=== PATIENT | male | born 1940 | race Caucasian/White ===

== ENCOUNTER 2020-01-14 07:32 | Outpatient (REF) | payer MEDICARE, SELFPAY ==
[2020-01-14 11:36] LABS: Cholesterol 166 mg/dL; Glucose Fasting 129 mg/dL (60-99); HDL Cholesterol 49 mg/dL; LDL Cholesterol Calculated 92 mg/dl; Triglycerides 126 mg/dL
== END 2020-01-14 07:33 | disposition home or self-care (01) ==
LOC: HO.10HDL 07:32
PROVIDERS: Visit Provider Internal Medicine
DX: E78.5 Hyperlipidemia, unspecified (principal)
CPT/HCPCS: 80061; 82947

== ENCOUNTER 2020-06-10 07:21 | Outpatient (REF) | payer MEDICARE, SELFPAY ==
--- NOTE | ~2020-06-10 | XR_ITS ---
EXAMINATION: XR HIP, RIGHT CLINICAL INFORMATION: Pain COMPARISON: Previous x-ray August 2019 TECHNIQUE: Two views of the right hip and one view of the pelvis. FINDINGS: There is a right hip replacement in satisfactory position. No fracture, dislocation or x-ray evidence of loosening is seen. Bones of the pelvis are unremarkable. 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 Soft tissues are unremarkable. XR/XR hip RT w PEL1V IMPRESSION: Satisfactory appearance of right hip replacement.
== END 2020-06-10 07:22 | disposition home or self-care (01) ==
LOC: HO.HOSX 07:21
PROVIDERS: Visit Provider Orthopaedic Surgery
DX: Z47.1 Aftercare following joint replacement surgery (principal); Z96.641 Presence of right artificial hip joint
CPT/HCPCS: 73502; 99212

== ENCOUNTER 2020-07-31 06:43 | Outpatient (REF) | payer MEDICARE, SELFPAY ==
[2020-07-31 11:49] LABS: Estimated Average Glucose 171 mg/dL; Hemoglobin A1c % 7.6 %
[2020-07-31 11:51] LABS: Cholesterol 146 mg/dL; HDL Cholesterol 45 mg/dL; LDL Cholesterol Calculated 82 mg/dl; Triglycerides 99 mg/dL
== END 2020-07-31 06:44 | disposition home or self-care (01) ==
LOC: HO.HMGCLDS 06:43
PROVIDERS: PCP Internal Medicine; Visit Provider Internal Medicine
DX: E11.9 Type 2 diabetes mellitus without complications (principal)
CPT/HCPCS: 36415; 80061; 83036

== ENCOUNTER 2020-12-09 06:41 | Outpatient (REF) | payer MEDICARE, SELFPAY ==
[2020-12-09 11:48] LABS: Cholesterol 149 mg/dL; HDL Cholesterol 44 mg/dL; LDL Cholesterol Calculated 88 mg/dl; Triglycerides 89 mg/dL
[2020-12-09 12:08] LABS: Prostate Specific Antigen 0.38 ng/mL (<0.05-4.0)
== END 2020-12-09 06:42 | disposition home or self-care (01) ==
LOC: HO.HMGCLDS 06:41
PROVIDERS: PCP Internal Medicine; Visit Provider Nurse Practitioner Family
DX: N40.0 Benign prostatic hyperplasia without lower urinary tract symptoms (principal); E11.9 Type 2 diabetes mellitus without complications
CPT/HCPCS: 36415; 80061; 84153

== ENCOUNTER → 2020-12-11 10:42 | Outpatient (BNVA) | payer MEDICARE, SELFPAY | PROVIDERS: PCP Internal Medicine; Visit Provider Urology | DX: N40.0 Benign prostatic hyperplasia without lower urinary tract symptoms (principal) | CPT/HCPCS: 51798; 99212 ==

== ENCOUNTER 2021-04-21 06:14 | Outpatient (REF) | payer MEDICARE, SELFPAY ==
[2021-04-21 11:23] LABS: MANUAL DIFF FLAG NO
[2021-04-21 11:33] LABS: Basophils Absolute Auto 0.1 X10*3/uL (0.0-0.2); Basophils Percent Auto 1.4 % (0-2); Eosinophils Absolute Auto 0.4 X10*3/uL (0.0-0.4); Eosinophils Percent Auto 5.3 % (0-4); Hematocrit 48.4 % (42.0-52.0); Hemoglobin 15.8 g/dl (14.0-18.0); Imm Gran Abs Auto 0.03 X10*3/uL (0.00-0.03); Imm Gran Pct Auto 0.4 % (0.0-0.4); Lymphocytes Absolute Auto 1.9 X10*3/uL (1.2-4.9); Lymphocytes Percent Auto 24.2 % (20-40); Mean Corpuscular HGB Conc 32.6 g/dl (31.0-36.0); Mean Corpuscular Hemoglobin 30.2 pg (27.0-33.0); Mean Corpuscular Volume 92.5 fL (80.0-98.0); Mean Platelet Volume 10.9 fL (9.4-12.4); Monocytes Absolute Auto 0.6 X10*3/uL (0.1-1.2); Monocytes Percent Auto 7.7 % (2-11); Neutrophils Absolute Auto 4.8 x10*3/uL (2.0-8.3); Platelet Count 228 X10*3/uL (160-400); Red Blood Count 5.23 X10*6/uL (4.60-5.80); Red Cell Distribution Width 14.1 % (11.0-16.0); White Blood Count 7.9 X10*3/uL (4.8-10.8)
[2021-04-21 11:53] LABS: Estimated Average Glucose 154 mg/dL
[2021-04-21 12:06] LABS: Alanine Aminotransferase 21 U/L (0-40); Albumin Level 4.2 g/dL (3.5-5.0); Alkaline Phosphatase 59 U/L (39-117); Anion Gap 12 (12-20); Aspartate Amino Transferase 21 U/L (5-37); Bilirubin Total 0.8 mg/dL (0.0-1.0); Blood Urea Nitrogen 14 mg/dL (9-16); Calcium 9.2 mg/dL (8.4-10.2); Carbon Dioxide 27 mmol/L (22-29); Chloride 107 mmol/L (96-108); Cholesterol 145 mg/dL; Estimated Glomerular Filt Rate > 60; Glucose Fasting 132 mg/dL (60-99); HDL Cholesterol 44 mg/dL; LDL Cholesterol Calculated 82 mg/dl; Potassium 4.2 mmol/L (3.3-5.1); Sodium 142 mmol/L (135-145); Total Protein 6.6 g/dL (6.5-8.0); Triglycerides 96 mg/dL
== END 2021-04-21 06:15 | disposition home or self-care (01) ==
LOC: HO.HMGCLDS 06:14
PROVIDERS: Visit Provider Internal Medicine
DX: Z00.00 Encounter for general adult medical examination without abnormal findings (principal); E11.9 Type 2 diabetes mellitus without complications
CPT/HCPCS: 36415; 80053; 80061; 83036; 85025

== ENCOUNTER 2021-08-13 06:10 | Outpatient (REF) | payer MEDICARE, SELFPAY ==
[2021-08-13 11:49] LABS: Estimated Average Glucose 146 mg/dL; Hemoglobin A1c % 6.7 %
[2021-08-13 12:08] LABS: Cholesterol 169 mg/dL; Glucose Fasting 135 mg/dL (60-99); HDL Cholesterol 46 mg/dL; LDL Cholesterol Calculated 105 mg/dl; Triglycerides 91 mg/dL
== END 2021-08-13 06:11 | disposition home or self-care (01) ==
LOC: HO.HMGCLDS 06:10
PROVIDERS: Visit Provider Internal Medicine
DX: Z00.00 Encounter for general adult medical examination without abnormal findings (principal); E11.65 Type 2 diabetes mellitus with hyperglycemia
CPT/HCPCS: 36415; 80061; 82947; 83036

== ENCOUNTER 2021-11-10 06:01 | Outpatient (REF) | payer MEDICARE, SELFPAY ==
[2021-11-10 11:53] LABS: Estimated Average Glucose 143 mg/dL; Hemoglobin A1c % 6.6 %
[2021-11-10 12:01] LABS: Cholesterol 179 mg/dL; Glucose Fasting 127 mg/dL (60-99); HDL Cholesterol 56 mg/dL; LDL Cholesterol Calculated 107 mg/dl; Triglycerides 81 mg/dL
== END 2021-11-10 06:02 | disposition home or self-care (01) ==
LOC: HO.HMGCLDS 06:01
PROVIDERS: PCP Internal Medicine; Visit Provider Internal Medicine
DX: E11.65 Type 2 diabetes mellitus with hyperglycemia (principal)
CPT/HCPCS: 36415; 80061; 82947; 83036

== ENCOUNTER → 2021-12-11 08:55 | Outpatient (BNVA) | payer MEDICARE, SELFPAY | PROVIDERS: PCP Internal Medicine; Visit Provider Urology | DX: N40.0 Benign prostatic hyperplasia without lower urinary tract symptoms (principal) | CPT/HCPCS: 51798; 99212 ==

== ENCOUNTER 2022-02-01 13:22 | Outpatient (REF) | payer MEDICARE, SELFPAY | END 2022-02-01 13:23 | disposition home or self-care (01) | LOC: HO.SH 13:22 | PROVIDERS: Visit Provider Internal Medicine | DX: H90.3 Sensorineural hearing loss, bilateral (principal) | CPT/HCPCS: 92557; 92567 ==

== ENCOUNTER 2022-02-01 15:07 | Outpatient (REF) | payer SELFPAY ==
--- NOTE | 2022-02-04 07:43 | MHC.AU.MED ---
Medical Clearance for Hearing Instrumentation Date: 02/04/22 Patient Name: Christopher Wagner Date of : 1940 Primary Care Provider: Referring Provider: Raoul Escudero MD We have seen your patient on 02/04/22 and have determined that they are a candidate for amplification (See accompanying report). Specifically, they would benefit from: Hearing aid use in both ears There is a statute that addresses Medical Evaluation Requirements prior to fitting a patient with a hearing aid. According to [place] statute 265 CMR:6.03(1), (a) General. Except as provided in 265 CMR 6.03(1)(b), a hearing aide technician shall not sell a hearing aid unless the prospective user has presented to the hearing aide technician a written statement signed by a licensed physician that states that the patient's hearing loss has been medically evaluated and the patient may be considered a candidate for a hearing aid. The medical evaluation must have taken place within the preceding six months. Please note: Due to the [place] Statute referenced above, we cannot accept a signature other than that of a licensed physician. APPLICATION SOFTWARE ENGINEER and PA signatures cannot be accepted. I am in agreement with the above recommendation. There is no medical contraindication for hearing instrumentation. Physician Signature Date Physician Name (Printed)
--- NOTE | 2022-02-04 07:54 | MHC.AU.HAS ---
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 Advise binaural hearing aids. Discussed appropriate styles of hearing aids for loss and technology levels available. Hearing Aid Prescription: Based on the individual?s shared listening needs, communication environments, dexterity, desire for connectivity, and personal preferences, the following prescription for amplification has been made: Right ear: Textile Machine Mechanic: trip.me Model: [employer] AI 1999 RAFAELA-R Battery Size: Rechargeable Color: Dada Silver Control Systems Technician: #3 60 gain Type of Mold: Genesis Canal mold Left ear:Left ear prescription to be same as Right Hearing Aid above: Textile Machine Mechanic: trip.me Model: Nanoferencev AI 1999 RAFAELA-R Battery Size: Rechargeable Color: Dada Silver Control Systems Technician: #3 60 gain Type of Mold: Genesis Canal Mold Plan of Care: Patient wishes to purchase hearing aids as prescribed Action Taken/Action Needed: Earmold Impressions Taken Medical Clearance to be requested from PCP/ENT Hearing Instrument Fitting to be scheduled when materials arrive Primary Diagnosis: H90.3 Bilateral Sensorineural Hearing Loss Signature:Provider: Janelle Murray, [facility]
== END 2022-02-01 15:08 | disposition home or self-care (01) ==
LOC: HO.HAP 15:07
PROVIDERS: Visit Provider Internal Medicine
DX: Z46.1 Encounter for fitting and adjustment of hearing aid (principal); H90.3 Sensorineural hearing loss, bilateral
CPT/HCPCS: 92590

== ENCOUNTER 2022-02-16 06:30 | Outpatient (REF) | payer MEDICARE, SELFPAY ==
[2022-02-16 11:58] LABS: Estimated Average Glucose 154 mg/dL
[2022-02-16 12:27] LABS: Cholesterol 182 mg/dL; Glucose Fasting 124 mg/dL (60-99); HDL Cholesterol 51 mg/dL; LDL Cholesterol Calculated 110 mg/dl; Triglycerides 109 mg/dL
== END 2022-02-16 06:31 | disposition home or self-care (01) ==
LOC: HO.HMGCLDS 06:30
PROVIDERS: PCP Internal Medicine; Visit Provider Internal Medicine
DX: E78.5 Hyperlipidemia, unspecified (principal); E11.65 Type 2 diabetes mellitus with hyperglycemia
CPT/HCPCS: 36415; 80061; 82947; 83036

== ENCOUNTER 2022-02-26 12:31 | Outpatient (REF) | payer SELFPAY ==
--- NOTE | 2022-02-26 14:15 | MHC.AU.HFA ---
Hearing Instrument Fitting- Adult- Binaural Date of Visit: 02/26/22 Hearing Instruments Dispensed: Right Ear: Genesis BRADLEY RAFAELA R STRL [id number] Repair Warranty: 05/14/24 Loss and Damage Warranty: 05/14/24 Service Plan: 02/26/2025 Battery Size: Rechargeable Weekend Anchor/Mold: Absolute Power Rec SnapFit #3 60 gain, SN [id number], Warranty 03/13/2024 Type of Wax Guard: HearClear Left Ear: Genesis RUSSO R STRL [id number] Repair Warranty: 05/14/24 Loss and Damage Warranty: 05/14/24 Service Plan: 02/26/2025 Battery Size: Rechargeable Weekend Anchor/Mold: Absolute Power Rec SnapFit #3 60 gain, SN [id number], Warranty 03/13/2024 Type of Wax Guard: HearClear (Blue w/yellow sticks) Accessories/Assistive Technology: Genesis Standard Digester [id number] Tonny: 05/14/25 Summary of Fitting: Feedback feed manager run. Verifit performed and levels adjusted to better reach targets. Patient was pleased with the sound and did not feel any additional adjustments were necessary. Hearing aid care and maintenance were discussed and practiced. Hearing aids were paired to his phone and the obdulia. Recommendations: A hearing instrument follow-up was scheduled. Paid $5492.00 Diagnosis Code(s): H90.3 Bilateral Sensorineural Hearing Loss Signature: Provider: Janelle Collado, CCC-A
== END 2022-02-26 12:32 | disposition home or self-care (01) ==
LOC: HO.HAP 12:31
PROVIDERS: Visit Provider Internal Medicine
DX: Z46.1 Encounter for fitting and adjustment of hearing aid (principal); H90.3 Sensorineural hearing loss, bilateral
CPT/HCPCS: V5261; V5264; V5299

== ENCOUNTER 2022-03-02 12:34 | Outpatient (REF) | payer SELFPAY | END 2022-03-02 12:35 | disposition home or self-care (01) | LOC: HO.HAP 12:34 | PROVIDERS: Visit Provider Internal Medicine | DX: Z13.89 Encounter for screening for other disorder (principal) ==

== ENCOUNTER 2022-03-09 08:29 | Outpatient (REF) | payer SELFPAY | END 2022-03-09 08:30 | disposition home or self-care (01) | LOC: HO.HAP 08:29 | PROVIDERS: Visit Provider Internal Medicine | DX: Z13.89 Encounter for screening for other disorder (principal) ==

== ENCOUNTER 2022-03-19 12:16 | Outpatient (REF) | payer SELFPAY | END 2022-03-19 12:17 | disposition home or self-care (01) | LOC: HO.HAP 12:16 | PROVIDERS: Visit Provider Internal Medicine | DX: Z13.89 Encounter for screening for other disorder (principal) ==

== ENCOUNTER 2022-05-05 13:56 | Outpatient (REF) | payer SELFPAY | END 2022-05-05 13:57 | disposition home or self-care (01) | LOC: HO.HAP 13:56 | PROVIDERS: Visit Provider Internal Medicine | DX: Z46.1 Encounter for fitting and adjustment of hearing aid (principal); H90.3 Sensorineural hearing loss, bilateral | CPT/HCPCS: V5267 ==

== ENCOUNTER 2022-05-18 06:29 | Outpatient (REF) | payer MEDICARE, SELFPAY ==
[2022-05-18 11:48] LABS: Cholesterol 186 mg/dL; Glucose Fasting 129 mg/dL (60-99); HDL Cholesterol 48 mg/dL; LDL Cholesterol Calculated 118 mg/dl; Triglycerides 101 mg/dL
[2022-05-18 12:00] LABS: Estimated Average Glucose 160 mg/dL; Hemoglobin A1c % 7.2 %
== END 2022-05-18 06:30 | disposition home or self-care (01) ==
LOC: HO.HMGCLDS 06:29
PROVIDERS: PCP Internal Medicine; Visit Provider Internal Medicine
DX: E11.65 Type 2 diabetes mellitus with hyperglycemia (principal); E78.5 Hyperlipidemia, unspecified
CPT/HCPCS: 36415; 80061; 82947; 83036

== ENCOUNTER 2022-09-06 06:09 | Outpatient (REF) | payer MEDICARE, SELFPAY ==
[2022-09-06 11:46] LABS: Estimated Average Glucose 160 mg/dL; Hemoglobin A1c % 7.2 %
[2022-09-06 11:53] LABS: Cholesterol 164 mg/dL; Glucose Fasting 130 mg/dL (60-99); HDL Cholesterol 48 mg/dL; LDL Cholesterol Calculated 96 mg/dl; Triglycerides 104 mg/dL
[2022-09-06 12:15] LABS: Thyroid Stimulating Hormone 5.51 uIU/mL (0.32-4.0)
== END 2022-09-06 06:10 | disposition home or self-care (01) ==
LOC: HO.HMGCLDS 06:09
PROVIDERS: PCP Internal Medicine; Visit Provider Internal Medicine
DX: E03.9 Hypothyroidism, unspecified (principal); R73.9 Hyperglycemia, unspecified; E78.5 Hyperlipidemia, unspecified
CPT/HCPCS: 36415; 80061; 82947; 83036; 84443

== ENCOUNTER 2022-12-07 06:10 | Outpatient (REF) | payer MEDICARE, SELFPAY ==
[2022-12-07 11:49] LABS: Estimated Average Glucose 151 mg/dL; Hemoglobin A1c % 6.9 % (<6.0)
[2022-12-07 12:15] LABS: Cholesterol 144 mg/dL (<200); Glucose Fasting 128 mg/dL (60-99); HDL Cholesterol 45 mg/dL (>40); LDL Cholesterol Calculated 80 mg/dL (<100); Triglycerides 97 mg/dL (<150)
[2022-12-07 12:16] LABS: Thyroid Stimulating Hormone 3.95 uIU/mL (0.32-4.0)
== END 2022-12-07 06:11 | disposition home or self-care (01) ==
LOC: HO.HMGCLDS 06:10
PROVIDERS: PCP Internal Medicine; Visit Provider Internal Medicine
DX: E03.9 Hypothyroidism, unspecified (principal); E78.5 Hyperlipidemia, unspecified; R73.9 Hyperglycemia, unspecified
CPT/HCPCS: 36415; 80061; 82947; 83036; 84443

== ENCOUNTER 2022-12-15 14:22 | Outpatient (AMB) | payer MEDICARE, SELFPAY ==
[2022-12-15 14:25] VITALS: BP 140/70; PULSE 85; O2SAT 96; BMI 30.4
--- NOTE | 2022-12-15 14:25 | MHC.PC.OV ---
Vital Signs 12/15/22 14:25 Height 5 ft 5 in Weight 183 lb BMI 30.4 BP 140/70 H Blood Pressure Location Lt brachial Position Sitting Pulse 85 Pulse Source Pulse Oximeter Pulse Oximetry (%) 96 Oxygen Delivery Method Room Air Intake Visit Reasons: 3mth f/u Merchant Mariner: Not Required per policy Accompanied by: Self / Same As Patient Allergies CHARLENE Inhibitors [CHARLENE INHIBITORS] Allergy (Unknown, Verified 12/15/22 14:25) COUGH SEASONAL ALLERGIES Allergy (Unknown, Uncoded 12/15/22 14:25) STUFFINESS, SNEEZING Medication List - Last Reconciled 12/16/22 by Raoul Escudero MD amlodipine 5 mg PO DAILY atorvastatin 20 mg PO DAILY finasteride 5 mg PO DAILY 90 days Tobacco use date assessed: 09/13/22 Fall risk assessment: 1 Fall in past year Last assessed Fall Risk: 12/15/22 Dental Screening Dental Screen Date: 12/15/22 Did you have a dental visit in the last 12 months?: Yes Did you have a dental problem in the last 6 months where you did not have access to dental care?: No Was dental information given to patient?: Patient has dentist HPI 3mth f/u HPI Details htn hyperlipidemia and bph; on meds and compliant doing well PFSH Medical History Hyperlipidemia Hypertension Surgical History History of colonoscopy History of total replacement of right hip H/O pilonidal cyst History of right hip replacement Family History Father Heart disease Mother Head injury Brother No problems noted. Family/Other Diabetes Social History Housing: House Alcohol intake: never Patient Tobacco Use Status: Never used Tobacco e-Cigarette/Vaping Use: Never Used Second Hand Smoke Exposure: No service: No Current occupational status: retired Current occupational exposures/hazards: No Cognitive needs: No Hearing needs: Yes Vision needs: Yes (glasses) Questionnaire PHQ-9 Over the last 2 weeks, how often have you been bothered by any of the following problems? 1. Little interest or pleasure in doing things: not at all 2. Feeling down, depressed, or hopeless: not at all 3. Trouble falling or staying asleep, or sleeping too much: not at all 4. Feeling tired or having little energy: not at all 5. Poor appetite or overeating: not at all 6. Feeling bad about yourself - or that you are a failure or have let yourself or your family down: not at all 7. Trouble concentrating on things, such as reading the newspaper or watching television: not at all 8. Moving or speaking so slowly that other people could have noticed. Or the opposite - being so fidgety or restless that you have been moving around a lot more than usual: not at all 9. Thoughts that you would be better off or of hurting yourself in some way: not at all Total score: 0 Depression Screening Interpretation: Negative 34738 - PHQ-9 Billing: Yes Source: Developed by Drs. Jeff Maria, Nataliya Bal, Avtar Lozada and colleagues, with an educational capo from [employer]. Thrive Questionnaire Date Thrive assessed: 08/26/22 AUDIT C Alcohol Use Questionnaire (AUDIT-C) 1. How often do you have a drink containing alcohol?: Never 3. How often do you have six or more drinks on one occasion?: Never Total Score: 0 Score Reviewed/Action Taken: Yes EMY-7 AMB Questionnaire EMY-7 Date EMY - 7 assessed: 05/26/22 Source: Developed by Drs. Jeff Maria, Nataliya Bal, Avtar Lozada and colleagues, with an educational capo from [employer]. Review of Systems Const Denies chills, Denies headache(s) and Denies weight loss ENT Denies headache(s) Card Denies chest pain, Denies syncope, Denies irregular heart rhythm and Denies dyspnea Resp Denies chest congestion, Denies cough and Denies dyspnea GI Denies abdominal pain, Denies change in stool character, Denies nausea and Denies vomiting Musc Denies deformity and Denies joint swelling Neuro Denies syncope and Denies headache(s) Physical exam (Primary Care) Vital Signs: Last Vital Signs Pulse 85 12/15/22 14:25 BP 140/70 H 12/15/22 14:25 Pulse Ox 96 12/15/22 14:25 Oxygen Delivery Method Room Air 12/15/22 14:25 BMI result Body Mass Index 30.4 Tobacco/Smoking Status: Tobacco use Status Tobacco use date assessed 09/13/22 12/15/22 14:29 Patient Tobacco Use Status Never used Tobacco 12/15/22 14:29 e-Cigarette/Vaping Use Never Used 12/15/22 14:29 PHQ-9: PHQ-9 Score PHQ-9: Total score 0 12/15/22 14:29 Depression Screening Interpretation: Negative Thrive Assessment: Date of Thrive Assessment Date Thrive assessed 08/26/22 12/15/22 14:29 Const General: cooperative, comfortable, no acute distress and alert Neck Neck: Yes no lymphadenopathy Thyroid: Thyroid normal Resp Effort & Inspection: normal respiratory effort Auscultation: clear to auscultation bilaterally Percussion: percussion normal Cardio Jugular venous distension: no JVD Palpation: normal PMI Rate: regular rate Rhythm: regular rhythm Heart sounds: S1 normal heart sound present and S2 normal heart sound present GI Inspection: Yes normal to inspection Palpation (GI): No hepatosplenomegaly present Skin General skin exam: no rashes or lesions noted Extrem General: Yes no clubbing, cyanosis or edema Assessment and Plan Assessment & Plan (1) Benign prostate hyperplasia: Code(s): N40.0 - Benign prostatic hyperplasia without lower urinary tract symptoms Qualifiers: Lower urinary tract symptom presence: symptoms absent Qualified Code(s): N40.0 - Benign prostatic hyperplasia without lower urinary tract symptoms Plan: stable; same rx (2) Hyperlipidemia: Code(s): E78.5 - Hyperlipidemia, unspecified Qualifiers: Hyperlipidemia type: unspecified Qualified Code(s): E78.5 - Hyperlipidemia, unspecified Plan: stable; same rx (3) Hypertension: Code(s): I10 - Essential (primary) hypertension Qualifiers: Hypertension type: unspecified Qualified Code(s): I10 - Essential (primary) hypertension Plan: stable Orders: Orders Lipid Panel Today E78.5 - Hyperlipidemia, unspecified Coding Level of Care Code Est Pt Level 4 (45549) Diagnoses Benign prostatic hyperplasia without lower urinary tract symptoms N40.0 Lower urinary tract symptom presence: symptoms absent Hyperlipidemia, unspecified hyperlipidemia type E78.5 Hyperlipidemia type: unspecified Hypertension, unspecified type I10 Hypertension type: unspecified
== END 2022-12-15 14:42 | disposition home or self-care (01) ==
PROVIDERS: PCP Internal Medicine; Visit Provider Internal Medicine
DX: N40.0 Benign prostatic hyperplasia without lower urinary tract symptoms (principal); E78.5 Hyperlipidemia, unspecified; I10 Essential (primary) hypertension
CPT/HCPCS: 99214

== ENCOUNTER 2023-01-07 13:29 | Outpatient (REF) | payer SELFPAY ==
--- NOTE | 2023-01-07 14:49 | MHC.AU.HA3 ---
Hearing Instrument Follow-Up- Binaural Date of Visit: 01/07/23 Right Ear: Srinivasan, Model, Color, Serial Number: Genesis RUSSO R SN: [id number] Color: Dada Silver Blow Mold Machine Operator Repair Warranty: 05/14/2024 Blow Mold Machine Operator Loss and Damage Warranty: 05/14/2024 [facility] Service Plan: 02/26/2025 Battery Size: Rechargeable Java Sybase Developer/Slim Tube: Absolute Power Rec SnapFit #3 60 gain Earmold/Dome/CShell/SlimTip:Genesis Canal mold SN: [id number] Tonny: 03/13/2024 Type of Wax Guard: HearClear Dispensed By: [facility] Date of Fittin02/26/2022 Left Ear: Srinivasan, Model, Color, Serial Number: Genesis RUSSO R SN: [id number] Color: Dada Silver Blow Mold Machine Operator Repair Warranty: 05/14/2024 Blow Mold Machine Operator Loss and Damage Warranty: 05/14/2024 [facility] Service Plan: 02/26/2025 Battery Size: Rechargeable Java Sybase Developer/Slim Tube: Absolute Power Java Sybase Developer SnapFit #3 60 gain Earmold/Dome/CShell/SlimTip: Genesis Canal Mold [id number] Bhjkdhex28/17/24 Type of Wax Guard: HearClear Dispensed By: [facility] Date of Fittin02/26/2022 Follow-Up Summary: Christopher reported that a couple days ago, his left hearing aid would not connect to the [place]. He is unsure if the hearing aid was working otherwise; although, he did notice some difficulty hearing in quiet spaces during that time. However, this morning, the left hearing aid connected to the dennis with no issues. Cleaned both hearing aids and ear molds. Lots of wax build up in vents. Replaced wax guards. Otoscopy clear, bilaterally. Ran diagnostic test via Inspire software with all components passing in both hearing aids. Appears to have been a bluetooth connection issue; however, discussed option to send hearing aid to [facility] for repair just in case. Christopher opted to try again as is. If the problem persists, he will drop off the left hearing aid to be sent out for in-warranty repair. Recommendations: Hearing instrument follow-up or maintenance as needed. Please contact our clinic with any questions or concerns. Patient will call if problems persist. Diagnosis Code(s): Primary Diagnosis: H90.3 Bilateral Sensorineural Hearing Loss Signature: Provider: Janelle Becker, [facility]
== END 2023-01-07 13:30 | disposition home or self-care (01) ==
LOC: HO.HAP 13:29
PROVIDERS: Visit Provider Internal Medicine
DX: Z46.1 Encounter for fitting and adjustment of hearing aid (principal); H90.3 Sensorineural hearing loss, bilateral
CPT/HCPCS: V5267

== ENCOUNTER 2023-02-01 13:04 | Outpatient (REF) | payer SELFPAY | END 2023-02-01 13:05 | disposition home or self-care (01) | LOC: HO.HAP 13:04 | PROVIDERS: Visit Provider Internal Medicine | DX: Z13.89 Encounter for screening for other disorder (principal) ==

== ENCOUNTER 2023-04-29 06:33 | Outpatient (REF) | payer MEDICARE, SELFPAY ==
[2023-04-29 12:25] LABS: Cholesterol 155 mg/dL (<200); HDL Cholesterol 47 mg/dL (>40); LDL Cholesterol Calculated 86 mg/dL (<100); Triglycerides 112 mg/dL (<150)
== END 2023-04-29 06:34 | disposition home or self-care (01) ==
LOC: HO.HMGCLDS 06:33
PROVIDERS: PCP Internal Medicine; Visit Provider Internal Medicine
DX: E78.5 Hyperlipidemia, unspecified (principal)
CPT/HCPCS: 36415; 80061

== ENCOUNTER 2023-05-02 09:10 | Outpatient (AMB) | payer MEDICARE, SELFPAY ==
--- NOTE | 2023-05-02 09:44 | A.OFFVIS_ITS ---
Intake Intake Visit Reasons: BPH- yearly follow up Intake Note: Patient presents today for a follow-up on BPH yearly check up: Meds- Finasteride Allergies to Antibiotic- No Known Allergies Blood Thinner- None Post Void Residual: 36 mL Nuisance Animal Damage Control Agent Required: No Accompanied by: Self / Same As Patient Allergies CHARLENE Inhibitors [CHARLENE INHIBITORS] Allergy (Unknown, Verified 05/02/23 09:45) COUGH SEASONAL ALLERGIES Allergy (Unknown, Uncoded 05/02/23 09:45) STUFFINESS, SNEEZING Medication List - Last Reconciled 05/02/23 by Gee Alvarez MD amlodipine 5 mg PO DAILY atorvastatin 20 mg PO DAILY finasteride 5 mg PO DAILY 90 days HPI HPI Comments History of Present Illness Details Christopher is an 82-year-old gentleman who is a patient of Dr. Oslon followed for BPH currently on Proscar 5 mg daily. He was last evaluated 12/11/2021. The patient states that he takes the finasteride Tuesday and Tuesday. He denies any irritative urinary symptoms and states he has a good flow and is drinking water to keep hydrated. 05/02/2023 bladder scan PVR --26mL I have reviewed the chart was PSA 12/09/2020--0.38 Plan: 05/22/2023--continue finasteride, follow-up with Dr. Olson in 1 year [facility] Medical History Hyperlipidemia Hypertension Surgical History History of colonoscopy History of total replacement of right hip H/O pilonidal cyst History of right hip replacement Family History Father Heart disease Mother Head injury Brother No problems noted. Family/Other Diabetes Social History Housing: House Alcohol intake: never Patient Tobacco Use Status: Never used Tobacco e-Cigarette/Vaping Use: Never Used Second Hand Smoke Exposure: No service: No Current occupational status: retired Current occupational exposures/hazards: No Cognitive needs: No Hearing needs: Yes Vision needs: Yes (glasses) Review of Systems Const All systems reviewed & are unremarkable except as noted in HPI and below Reports no additional complaints Eyes Reports no additional complaints ENT Reports no additional complaints Card Denies dyspnea Resp Denies cough and Denies dyspnea GI Reports no additional complaints Musc Reports no additional complaints Skin/Breast Denies rash and Denies unusual bruising Neuro Reports no additional complaints Psych Reports no additional complaints Endo Reports no additional complaints Charanjit/Lymph Reports no additional complaints Aller/Immun Reports no additional complaints Office Procedures Post Void Residual Post Residual Void Post Void Residual (PVR): 36 [id number] Void Residual by ultrasound Assessment & Plan Assessment & Plan (1) Benign prostate hyperplasia: Code(s): N40.0 - Benign prostatic hyperplasia without lower urinary tract symptoms Qualifiers: Lower urinary tract symptom presence: symptoms absent Qualified Code(s): N40.0 - Benign prostatic hyperplasia without lower urinary tract symptoms Plan 05/22/2023--continue finasteride, follow-up with Dr. Olson in 1 year Orders: Orders AMB Urinalysis Automated Today Z13.9 - Encounter for screening, unspecified AMB Post Void Residual by ultrasound Today N39.8 - Other specified disorders of urinary system Medications: Refilled finasteride 5 mg PO DAILY 90 days 90 tabs 0RF Patient Instructions: The patient had an opportunity to ask questions regarding treatment plan. All questions were answered. Laboratory studies and physical exam results were discussed and reviewed in detail. No major barriers to understanding were identified. The patient expressed understanding and agreement with the above treatment plan. The patient is aware they should contact our office by phone for worsening of their current condition or the appearance of new symptoms. Compliance is encouraged with any medications and followup testing that is ordered. It is a privilege to be allowed the opportunity to participate in the urologic care of your patient. If you have any questions or concerns regarding treatment for the above conditions please do not hesitate to contact me. The office telephone contact is [phone]. This note is constructed in part using voice recognition software. While every effort has been made to ensure accuracy vp mobile products errors may have been included. Yours sincerely, Gee Alvarez MD Coding Level of Care Code Est Pt Level 3 (15328) Diagnoses Benign prostatic hyperplasia without lower urinary tract symptoms N40.0 Lower urinary tract symptom presence: symptoms absent CPT Codes Post Residual Void - PVR CPT Code: 98688-Vokc Void Residual by ultrasound ([id number])
== END 2023-05-02 10:19 | disposition home or self-care (01) ==
PROVIDERS: Visit Provider Urology
DX: N40.0 Benign prostatic hyperplasia without lower urinary tract symptoms (principal)
CPT/HCPCS: 99213

== ENCOUNTER → 2023-05-02 09:10 | Outpatient (BNVA) | payer MEDICARE, SELFPAY | PROVIDERS: Visit Provider Urology | DX: N40.0 Benign prostatic hyperplasia without lower urinary tract symptoms (principal); N39.8 Other specified disorders of urinary system | CPT/HCPCS: 51798; 99212 ==

== ENCOUNTER 2023-05-04 10:10 | Outpatient (AMB) | payer MEDICARE, SELFPAY ==
[2023-05-04 10:16] VITALS: BP 130/60; PULSE 60; O2SAT 95; BMI 30.8
--- NOTE | 2023-05-04 10:16 | A.OFFPC_ITS ---
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: Not Required per policy Accompanied by: Self / Same As Patient Allergies CHARLENE Inhibitors [CHARLENE INHIBITORS] Allergy (Unknown, Verified 05/04/23 10:16) COUGH SEASONAL ALLERGIES Allergy (Unknown, Uncoded 05/04/23 10:16) STUFFINESS, SNEEZING Medication List - Last Reconciled 05/04/23 by Raoul Escudero MD amlodipine 5 mg PO DAILY atorvastatin 20 mg PO DAILY finasteride 5 mg PO DAILY 90 days Tobacco use date assessed: 05/04/23 Fall risk assessment: 1 Fall in past year Last assessed Fall Risk: 05/04/23 Dental Screening Dental Screen Date: 05/04/23 Did you have a dental visit in the last 12 months?: Yes Did you have a dental problem in the last 6 months where you did not have access to dental care?: No Was dental information given to patient?: Patient has dentist HPI 3 Months F/U HPI Details HTN hyperlipidemia and BPH on rx; doing well; compliant [facility] Medical History Hyperlipidemia Hypertension Surgical History History of colonoscopy History of total replacement of right hip H/O pilonidal cyst History of right hip replacement Family History Father Heart disease Mother Head injury Brother No problems noted. Family/Other Diabetes Social History Housing: House Alcohol intake: never Patient Tobacco Use Status: Never used Tobacco e-Cigarette/Vaping Use: Never Used Second Hand Smoke Exposure: No service: No Current occupational status: retired Current occupational exposures/hazards: No Cognitive needs: No Hearing needs: Yes Vision needs: Yes (glasses) Questionnaire PHQ-9 Over the last 2 weeks, how often have you been bothered by any of the following problems? 1. Little interest or pleasure in doing things: not at all 2. Feeling down, depressed, or hopeless: not at all 3. Trouble falling or staying asleep, or sleeping too much: not at all 4. Feeling tired or having little energy: not at all 5. Poor appetite or overeating: not at all 6. Feeling bad about yourself - or that you are a failure or have let yourself or your family down: not at all 7. Trouble concentrating on things, such as reading the newspaper or watching television: not at all 8. Moving or speaking so slowly that other people could have noticed. Or the opposite - being so fidgety or restless that you have been moving around a lot more than usual: not at all 9. Thoughts that you would be better off or of hurting yourself in some way: not at all Total score: 0 Depression Screening Interpretation: Negative Depression Screening Done: Yes 54434 - PHQ-9 Billing: Yes Source: Developed by Drs. Jeff Maria, Nataliya Bal, Avtar Lozada and colleagues, with an educational capo from [employer]. Thrive Questionnaire Date Thrive assessed: 05/04/23 I am a: Patient What is your living situation today?: I have a steady place to live Within the past 12 months, did the food you bought not last and you didn't have the money to get more?: Never true Within the past 12 months, did you worry whether your food would run out before you got money to buy more?: Never true Do you have trouble paying for medicines?: No Do you have trouble getting transportation to medical appointments?: No Do you have trouble paying your heating and electricity bill?: No Do you have trouble taking care of your child, family member or friend?: No Do you have trouble with day-to-day activities such as bathing, preparing meals, shopping, managing finances, etc.?: No Are you currently unemployed and looking for a job?: No Are you interested in more education?: No Please select the resources that you would like help with: None THRIVE Score: 0 AUDIT C Alcohol Use Questionnaire (AUDIT-C) 1. How often do you have a drink containing alcohol?: Never 3. How often do you have six or more drinks on one occasion?: Never Total Score: 0 Score Reviewed/Action Taken: Yes EMY-7 AMB Questionnaire EMY-7 Date EMY - 7 assessed: 05/04/23 Feeling nervous, anxious, or on edge: 0 = Not at all Not being able to stop or control worryin = Not at all Worrying too much about different things: 0 = Not at all Trouble relaxin = Not at all Being so restless that it is hard to sit still: 0 = Not at all Becoming easily annoyed or irritable: 0 = Not at all Feeling afraid as if something awful might happen: 0 = Not at all Total EMY-7 score (0-4 normal; 5-9 mild; 10-14 moderate; 15-21 severe): 0 Source: Developed by Drs. Jeff Maria, Nataliya Bal, Avtar Lozada and colleagues, with an educational capo from [employer]. Review of Systems Const Denies chills, Denies headache(s) and Denies weight loss ENT Denies headache(s) Card Denies chest pain, Denies syncope, Denies irregular heart rhythm and Denies dyspnea Resp Denies chest congestion, Denies cough and Denies dyspnea GI Denies abdominal pain, Denies change in stool character, Denies nausea and Denies vomiting Musc Denies deformity and Denies joint swelling Neuro Denies syncope and Denies headache(s) Physical exam (Primary Care) Vital Signs: Last Vital Signs Pulse 60 05/04/23 10:16 BP 130/60 05/04/23 10:16 Pulse Ox 95 05/04/23 10:16 Oxygen Delivery Method Room Air 05/04/23 10:16 BMI result Body Mass Index 30.8 Tobacco/Smoking Status: Tobacco use Status Tobacco use date assessed 05/04/23 05/04/23 10:17 Patient Tobacco Use Status Never used Tobacco 05/04/23 10:17 e-Cigarette/Vaping Use Never Used 05/04/23 10:17 PHQ-9: PHQ-9 Score PHQ-9: Total score 0 05/04/23 10:17 Depression Screening Interpretation: Negative Thrive Assessment: Date of Thrive Assessment Date Thrive assessed 05/04/23 05/04/23 10:17 Const General: cooperative, comfortable, no acute distress and alert Neck Neck: Yes no lymphadenopathy Thyroid: Thyroid normal Resp Effort & Inspection: normal respiratory effort Auscultation: clear to auscultation bilaterally Percussion: percussion normal Cardio Jugular venous distension: no JVD Palpation: normal PMI Rate: regular rate Rhythm: regular rhythm Heart sounds: S1 normal heart sound present and S2 normal heart sound present GI Inspection: Yes normal to inspection Palpation (GI): No hepatosplenomegaly present Skin General skin exam: no rashes or lesions noted Extrem General: Yes no clubbing, cyanosis or edema Assessment and Plan Assessment & Plan (1) Benign prostate hyperplasia: Code(s): N40.0 - Benign prostatic hyperplasia without lower urinary tract symptoms Qualifiers: Lower urinary tract symptom presence: symptoms absent Qualified Code(s): N40.0 - Benign prostatic hyperplasia without lower urinary tract symptoms Plan: stable; same rx (2) Hyperlipidemia: Code(s): E78.5 - Hyperlipidemia, unspecified Qualifiers: Hyperlipidemia type: unspecified Qualified Code(s): E78.5 - Hyperlipidemia, unspecified Plan: stable; same rx (3) Hypertension: Code(s): I10 - Essential (primary) hypertension Qualifiers: Hypertension type: unspecified Qualified Code(s): I10 - Essential (primary) hypertension Plan: stable; same rx Orders: Orders Comprehensive Boyd. Panel Fast Today N28.9 - Disorder of kidney and ureter, unspecified Hemoglobin A1c Today R73.9 - Hyperglycemia, unspecified Lipid Panel Today E78.5 - Hyperlipidemia, unspecified Thyroid Stimulating Hormone Today E03.9 - Hypothyroidism, unspecified Medications: Refilled atorvastatin 20 mg PO DAILY 90 tabs 0RF amlodipine 5 mg PO DAILY 90 tabs 0RF Coding Level of Care Code Tele Est Pt Level 4 (32053) Diagnoses Benign prostatic hyperplasia without lower urinary tract symptoms N40.0 Lower urinary tract symptom presence: symptoms absent Hyperlipidemia, unspecified hyperlipidemia type E78.5 Hyperlipidemia type: unspecified Hypertension, unspecified type I10 Hypertension type: unspecified
== END 2023-05-04 10:43 | disposition home or self-care (01) ==
PROVIDERS: PCP Internal Medicine; Visit Provider Internal Medicine
DX: N40.0 Benign prostatic hyperplasia without lower urinary tract symptoms (principal); E78.5 Hyperlipidemia, unspecified; I10 Essential (primary) hypertension
CPT/HCPCS: 99214

== ENCOUNTER 2023-08-03 06:12 | Outpatient (REF) | payer MEDICARE, SELFPAY ==
[2023-08-03 10:57] LABS: Estimated Average Glucose 171 mg/dL; Hemoglobin A1c % 7.6 % (<6.0)
[2023-08-03 11:03] LABS: Alanine Aminotransferase 41 U/L (0-40); Albumin Level 4.3 g/dL (3.5-5.0); Alkaline Phosphatase 49 U/L (39-117); Anion Gap 14 (12-20); Aspartate Amino Transferase 29 U/L (5-37); Bilirubin Total 0.7 mg/dL (0.0-1.0); Blood Urea Nitrogen 17 mg/dL (9-16); Calcium 9.4 mg/dL (8.4-10.2); Carbon Dioxide 25 mmol/L (22-29); Chloride 107 mmol/L (96-108); Cholesterol 162 mg/dL (<200); Estimated Glomerular Filt Rate > 60; Glucose Fasting 150 mg/dL (60-99); HDL Cholesterol 46 mg/dL (>40); LDL Cholesterol Calculated 98 mg/dL (<100); Potassium 4.1 mmol/L (3.3-5.1); Sodium 142 mmol/L (135-145); Triglycerides 93 mg/dL (<150)
[2023-08-03 11:21] LABS: Thyroid Stimulating Hormone 3.38 uIU/mL (0.32-4.0)
== END 2023-08-03 06:13 | disposition home or self-care (01) ==
LOC: HO.HMGCLDS 06:12
PROVIDERS: PCP Internal Medicine; Visit Provider Internal Medicine
DX: E03.9 Hypothyroidism, unspecified (principal); E78.5 Hyperlipidemia, unspecified; N28.9 Disorder of kidney and ureter, unspecified; R73.9 Hyperglycemia, unspecified
CPT/HCPCS: 36415; 80053; 80061; 83036; 84443

== ENCOUNTER 2023-08-19 12:57 | Outpatient (AMB) | payer MEDICARE, SELFPAY ==
[2023-08-19 13:03] VITALS: BP 146/78; PULSE 68; O2SAT 98; BMI 30.6
--- NOTE | 2023-08-19 13:03 | A.OFFPC_ITS ---
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 Accompanied by: Self / Same As Patient Allergies CHARLENE Inhibitors [CHARLENE INHIBITORS] Allergy (Unknown, Verified 08/19/23 13:03) COUGH SEASONAL ALLERGIES Allergy (Unknown, Uncoded 08/19/23 13:03) STUFFINESS, SNEEZING Tobacco use date assessed: 05/04/23 Fall risk assessment: No Falls in past year Last assessed Fall Risk: 08/19/23 Dental Screening Dental Screen Date: 05/04/23 HPI 3 Months F/U HPI Details HTN on Rx; doing well; compliant [facility] Medical History Hyperlipidemia Hypertension Surgical History History of colonoscopy History of total replacement of right hip H/O pilonidal cyst History of right hip replacement Family History Father Heart disease Mother Head injury Brother No problems noted. Family/Other Diabetes Social History Housing: House Alcohol intake: never Patient Tobacco Use Status: Never used Tobacco e-Cigarette/Vaping Use: Never Used Second Hand Smoke Exposure: No service: No Current occupational status: retired Current occupational exposures/hazards: No Cognitive needs: No Hearing needs: Yes Vision needs: Yes (glasses) Questionnaire Thrive Questionnaire Date Thrive assessed: 05/04/23 EMY-7 AMB Questionnaire EMY-7 Date EMY - 7 assessed: 05/04/23 Source: Developed by Drs. Jeff Maria, Nataliya Bal, Avtar Lozada and colleagues, with an educational capo from [employer]. Review of Systems Const Denies chills, Denies headache(s) and Denies weight loss ENT Denies headache(s) Card Denies chest pain, Denies syncope, Denies irregular heart rhythm and Denies dyspnea Resp Denies chest congestion, Denies cough and Denies dyspnea GI Denies abdominal pain, Denies change in stool character, Denies nausea and Denies vomiting Musc Denies deformity and Denies joint swelling Neuro Denies syncope and Denies headache(s) Physical exam (Primary Care) Vital Signs: Last Vital Signs Pulse 68 08/19/23 13:03 BP 146/78 H 08/19/23 13:03 Pulse Ox 98 08/19/23 13:03 Oxygen Delivery Method Room Air 08/19/23 13:03 BMI result Body Mass Index 30.6 Tobacco/Smoking Status: Tobacco use Status Tobacco use date assessed 05/04/23 08/19/23 13:03 Patient Tobacco Use Status Never used Tobacco 08/19/23 13:03 e-Cigarette/Vaping Use Never Used 08/19/23 13:03 Thrive Assessment: Date of Thrive Assessment Date Thrive assessed 05/04/23 08/19/23 13:03 Const General: cooperative, comfortable, no acute distress and alert Neck Neck: Yes no lymphadenopathy Thyroid: Thyroid normal Resp Effort & Inspection: normal respiratory effort Auscultation: clear to auscultation bilaterally Percussion: percussion normal Cardio Jugular venous distension: no JVD Palpation: normal PMI Rate: regular rate Rhythm: regular rhythm Heart sounds: S1 normal heart sound present and S2 normal heart sound present GI Inspection: Yes normal to inspection Palpation (GI): No hepatosplenomegaly present Skin General skin exam: no rashes or lesions noted Extrem General: Yes no clubbing, cyanosis or edema Assessment and Plan Assessment & Plan (1) Hypertension: Code(s): I10 - Essential (primary) hypertension Qualifiers: Hypertension type: unspecified Qualified Code(s): I10 - Essential (primary) hypertension Plan: stable; same rx Orders: Orders Lipid Panel Today Z13.220 - Encounter for screening for lipoid disorders Glucose Fasting Today R73.9 - Hyperglycemia, unspecified Hemoglobin A1c Today R73.9 - Hyperglycemia, unspecified Medications: New loratadine (Allergy Relief (loratadine)) 10 mg PO DAILY PRN 30 tabs 3RF allergy symptoms Coding Level of Care Code Est Pt Level 3 (44736) Diagnoses Hypertension, unspecified type I10 Hypertension type: unspecified
== END 2023-08-19 13:20 | disposition home or self-care (01) ==
PROVIDERS: PCP Internal Medicine; Visit Provider Internal Medicine
DX: I10 Essential (primary) hypertension (principal)
CPT/HCPCS: 99213

== ENCOUNTER 2023-11-11 06:31 | Outpatient (REF) | payer MEDICARE, SELFPAY ==
[2023-11-11 10:29] LABS: Cholesterol 161 mg/dL (<200); Glucose Fasting 140 mg/dL (60-99); HDL Cholesterol 47 mg/dL (>40); LDL Cholesterol Calculated 90 mg/dL (<100); Triglycerides 123 mg/dL (<150)
[2023-11-11 10:48] LABS: Estimated Average Glucose 166 mg/dL; Hemoglobin A1c % 7.4 % (<6.0)
== END 2023-11-11 06:32 | disposition home or self-care (01) ==
LOC: HO.HMGCLDS 06:31
PROVIDERS: PCP Internal Medicine; Visit Provider Internal Medicine
DX: Z13.220 Encounter for screening for lipoid disorders (principal); R73.9 Hyperglycemia, unspecified
CPT/HCPCS: 36415; 80061; 82947; 83036

== ENCOUNTER 2023-11-18 11:14 | Outpatient (AMB) | payer MEDICARE, SELFPAY ==
[2023-11-18 11:14] VITALS: BP 142/84; PULSE 59; O2SAT 95; BMI 30.9
--- NOTE | 2023-11-18 11:14 | MHC.PC.OV ---
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 Accompanied by: Self / Same As Patient Allergies CHARLENE Inhibitors [CHARLENE INHIBITORS] Allergy (Unknown, Verified 11/18/23 11:15) COUGH SEASONAL ALLERGIES Allergy (Unknown, Uncoded 11/18/23 11:15) STUFFINESS, SNEEZING Medication List - Last Reconciled 11/18/23 by Raoul Escudero MD amlodipine 5 mg PO DAILY atorvastatin 20 mg PO DAILY finasteride 5 mg PO DAILY loratadine (Allergy Relief (loratadine)) 10 mg PO DAILY PRN Tobacco use date assessed: 05/04/23 Fall risk assessment: 1 Fall in past year Last assessed Fall Risk: 11/18/23 Dental Screening Dental Screen Date: 05/04/23 HPI 3 Month F/U HPI Details HTN and hyperlipidemia on rx; doing well PFSH Medical History Hyperlipidemia Hypertension Surgical History History of colonoscopy History of total replacement of right hip H/O pilonidal cyst History of right hip replacement Family History Father Heart disease Mother Head injury Brother No problems noted. Family/Other Diabetes Social History Housing: House Alcohol intake: never Patient Tobacco Use Status: Never used Tobacco e-Cigarette/Vaping Use: Never Used Second Hand Smoke Exposure: No service: No Current occupational status: retired Current occupational exposures/hazards: No Cognitive needs: No Hearing needs: Yes Vision needs: Yes (glasses) Questionnaire PHQ-9 Over the last 2 weeks, how often have you been bothered by any of the following problems? 1. Little interest or pleasure in doing things: not at all 2. Feeling down, depressed, or hopeless: not at all 3. Trouble falling or staying asleep, or sleeping too much: not at all 4. Feeling tired or having little energy: not at all 5. Poor appetite or overeating: not at all 6. Feeling bad about yourself - or that you are a failure or have let yourself or your family down: not at all 7. Trouble concentrating on things, such as reading the newspaper or watching television: not at all 8. Moving or speaking so slowly that other people could have noticed. Or the opposite - being so fidgety or restless that you have been moving around a lot more than usual: not at all 9. Thoughts that you would be better off or of hurting yourself in some way: not at all Total score: 0 Depression Screening Interpretation: Negative Depression Screening Done: Yes 56341 - PHQ-9 Billing: Yes Source: Developed by Drs. Jeff Maria, Nataliya Bal, Avtar Lozada and colleagues, with an educational capo from [employer]. Thrive Questionnaire Date Thrive assessed: 05/04/23 AUDIT C Alcohol Use Questionnaire (AUDIT-C) 1. How often do you have a drink containing alcohol?: Never 3. How often do you have six or more drinks on one occasion?: Never Total Score: 0 Score Reviewed/Action Taken: Yes EMY-7 AMB Questionnaire EMY-7 Date EMY - 7 assessed: 05/04/23 Source: Developed by Drs. Jeff Maria, Nataliya Bal, Avtar Lozada and colleagues, with an educational capo from [employer]. Review of Systems Const Denies chills, Denies headache(s) and Denies weight loss ENT Denies headache(s) Card Denies chest pain, Denies syncope, Denies irregular heart rhythm and Denies dyspnea Resp Denies chest congestion, Denies cough and Denies dyspnea GI Denies abdominal pain, Denies change in stool character, Denies nausea and Denies vomiting Musc Denies deformity and Denies joint swelling Neuro Denies syncope and Denies headache(s) Physical exam (Primary Care) Vital Signs: Last Vital Signs Pulse 59 11/18/23 11:14 BP 142/84 H 11/18/23 11:14 Pulse Ox 95 11/18/23 11:14 Oxygen Delivery Method Room Air 11/18/23 11:14 BMI result Body Mass Index 30.9 Tobacco/Smoking Status: Tobacco use Status Tobacco use date assessed 05/04/23 11/18/23 11:19 Patient Tobacco Use Status Never used Tobacco 11/18/23 11:19 e-Cigarette/Vaping Use Never Used 11/18/23 11:19 PHQ-9: PHQ-9 Score PHQ-9: Total score 0 11/18/23 11:19 Depression Screening Interpretation: Negative Thrive Assessment: Date of Thrive Assessment Date Thrive assessed 05/04/23 11/18/23 11:19 Const General: cooperative, comfortable, no acute distress and alert Neck Neck: Yes no lymphadenopathy Thyroid: Thyroid normal Resp Effort & Inspection: normal respiratory effort Auscultation: clear to auscultation bilaterally Percussion: percussion normal Cardio Jugular venous distension: no JVD Palpation: normal PMI Rate: regular rate Rhythm: regular rhythm Heart sounds: S1 normal heart sound present and S2 normal heart sound present GI Inspection: Yes normal to inspection Palpation (GI): No hepatosplenomegaly present Skin General skin exam: no rashes or lesions noted Extrem General: Yes no clubbing, cyanosis or edema Assessment and Plan Assessment & Plan (1) Hyperlipidemia: Code(s): E78.5 - Hyperlipidemia, unspecified Qualifiers: Hyperlipidemia type: unspecified Qualified Code(s): E78.5 - Hyperlipidemia, unspecified Plan: stable; same rx (2) Hypertension: Code(s): I10 - Essential (primary) hypertension Qualifiers: Hypertension type: unspecified Qualified Code(s): I10 - Essential (primary) hypertension Plan: stable; same rx (3) Elevated hemoglobin A1c: Code(s): R73.09 - Other abnormal glucose Plan: stable A1C Orders: Orders Lipid Panel Today Z13.220 - Encounter for screening for lipoid disorders Glucose Fasting Today R73.9 - Hyperglycemia, unspecified Hemoglobin A1c Today R73.9 - Hyperglycemia, unspecified Coding Level of Care Code Est Pt Level 4 (81991) Diagnoses Hyperlipidemia, unspecified hyperlipidemia type E78.5 Hyperlipidemia type: unspecified Hypertension, unspecified type I10 Hypertension type: unspecified Elevated hemoglobin A1c R73.09
== END 2023-11-18 11:54 | disposition home or self-care (01) ==
PROVIDERS: PCP Internal Medicine; Visit Provider Internal Medicine
DX: E78.5 Hyperlipidemia, unspecified (principal); I10 Essential (primary) hypertension; R73.09 Other abnormal glucose
CPT/HCPCS: 99214

== ENCOUNTER 2023-11-22 09:32 | Outpatient (REF) | payer SELFPAY | END 2023-11-22 09:33 | disposition home or self-care (01) | LOC: HO.HAP 09:32 | PROVIDERS: Visit Provider Internal Medicine | DX: Z46.1 Encounter for fitting and adjustment of hearing aid (principal); H90.3 Sensorineural hearing loss, bilateral | CPT/HCPCS: V5267 ==

== ENCOUNTER 2024-02-10 07:07 | Outpatient (REF) | payer MEDICARE, SELFPAY ==
[2024-02-10 10:39] LABS: Cholesterol 152 mg/dL (<200); Glucose Fasting 149 mg/dL (60-99); HDL Cholesterol 42 mg/dL (>40); LDL Cholesterol Calculated 83 mg/dL (<100); Triglycerides 136 mg/dL (<150)
[2024-02-10 10:54] LABS: Estimated Average Glucose 177 mg/dL; Hemoglobin A1C 252.3338 umol/L; Hemoglobin A1c % 7.8 % (<6.0); Total Hemoglobin (HGBA1C) 4064.7822 umol/L
== END 2024-02-10 07:08 | disposition home or self-care (01) ==
LOC: HO.HMGCLDS 07:07
PROVIDERS: PCP Internal Medicine; Visit Provider Internal Medicine
DX: R73.9 Hyperglycemia, unspecified (principal); Z13.220 Encounter for screening for lipoid disorders
CPT/HCPCS: 36415; 80061; 82947; 83036

== ENCOUNTER 2024-02-20 11:20 | Outpatient (AMB) | payer MEDICARE, SELFPAY ==
[2024-02-20 11:24] VITALS: BP 162/80; PULSE 60; O2SAT 98; BMI 30.5
--- NOTE | 2024-02-20 11:24 | A.OFFPC_ITS ---
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: No Allergies CHARLENE Inhibitors [CHARLENE INHIBITORS] Allergy (Unknown, Verified 02/20/24 11:25) COUGH SEASONAL ALLERGIES Allergy (Unknown, Uncoded 02/20/24 11:25) STUFFINESS, SNEEZING Medication List - Last Reconciled 02/20/24 by Raoul Escudero MD amlodipine 5 mg PO DAILY atorvastatin 20 mg PO DAILY finasteride 5 mg PO DAILY loratadine (Allergy Relief (loratadine)) 10 mg PO DAILY PRN Tobacco use date assessed: 05/04/23 Fall risk assessment: No Falls in past year Last assessed Fall Risk: 02/20/24 Dental Screening Dental Screen Date: 05/04/23 HPI 3 mo follow up HPI Details now has DM with an elevated 1C; will need to start rx PFSH Medical History Hyperlipidemia Hypertension Surgical History History of colonoscopy History of total replacement of right hip H/O pilonidal cyst History of right hip replacement Family History Father Heart disease Mother Head injury Brother No problems noted. Family/Other Diabetes Social History Housing: House Alcohol intake: never Patient Tobacco Use Status: Never used Tobacco e-Cigarette/Vaping Use: Never Used Second Hand Smoke Exposure: No service: No Current occupational status: retired Current occupational exposures/hazards: No Cognitive needs: No Hearing needs: Yes Vision needs: Yes (glasses) Questionnaire Thrive Questionnaire Date Thrive assessed: 05/04/23 AUDIT C Alcohol Use Questionnaire (AUDIT-C) 1. How often do you have a drink containing alcohol?: Never 3. How often do you have six or more drinks on one occasion?: Never Total Score: 0 Score Reviewed/Action Taken: Yes EMY-7 AMB Questionnaire EMY-7 Date EMY - 7 assessed: 05/04/23 Source: Developed by Drs. Jeff Maria, Nataliya Bal, Avtar Lozada and colleagues, with an educational capo from [employer]. Review of Systems Const Denies chills, Denies headache(s) and Denies weight loss ENT Denies headache(s) Card Denies chest pain, Denies syncope, Denies irregular heart rhythm and Denies dyspnea Resp Denies chest congestion, Denies cough and Denies dyspnea GI Denies abdominal pain, Denies change in stool character, Denies nausea and Denies vomiting Musc Denies deformity and Denies joint swelling Neuro Denies syncope and Denies headache(s) Physical exam (Primary Care) Vital Signs: Last Vital Signs Pulse 60 02/20/24 11:24 BP 162/80 H 02/20/24 11:24 Pulse Ox 98 02/20/24 11:24 Oxygen Delivery Method Room Air 02/20/24 11:24 BMI result Body Mass Index 30.5 Tobacco/Smoking Status: Tobacco use Status Tobacco use date assessed 05/04/23 02/20/24 11:25 Patient Tobacco Use Status Never used Tobacco 02/20/24 11:25 e-Cigarette/Vaping Use Never Used 02/20/24 11:25 Thrive Assessment: Date of Thrive Assessment Date Thrive assessed 05/04/23 02/20/24 11:25 Const General: cooperative, comfortable, no acute distress and alert Neck Neck: Yes no lymphadenopathy Thyroid: Thyroid normal Resp Effort & Inspection: normal respiratory effort Auscultation: clear to auscultation bilaterally Percussion: percussion normal Cardio Jugular venous distension: no JVD Palpation: normal PMI Rate: regular rate Rhythm: regular rhythm Heart sounds: S1 normal heart sound present and S2 normal heart sound present GI Inspection: Yes normal to inspection Palpation (GI): No hepatosplenomegaly present Skin General skin exam: no rashes or lesions noted Extrem General: Yes no clubbing, cyanosis or edema Coding Level of Care Code Est Pt Level 3 (46417) Diagnoses Diabetes mellitus with coincident hypertension E11.9; I10 Assessment & Plan Assessment & Plan (1) Diabetes mellitus with coincident hypertension: Code(s): E11.9 - Type 2 diabetes mellitus without complications; I10 - Essential (primary) hypertension Category: Medical Plan: rx sent Orders: Orders Hemoglobin A1c Today R73.9 - Hyperglycemia, unspecified Glucose Fasting Today R73.9 - Hyperglycemia, unspecified Medications: New metformin 500 mg PO BID 120 tabs 0RF
== END 2024-02-20 11:49 | disposition home or self-care (01) ==
PROVIDERS: PCP Internal Medicine; Visit Provider Internal Medicine
DX: E11.9 Type 2 diabetes mellitus without complications (principal); I10 Essential (primary) hypertension

== ENCOUNTER → 2024-02-20 11:20 | Outpatient (BNVA) | payer MEDICARE, SELFPAY | PROVIDERS: PCP Internal Medicine; Visit Provider Internal Medicine | DX: E11.9 Type 2 diabetes mellitus without complications (principal); I10 Essential (primary) hypertension | CPT/HCPCS: 99212 ==

== ENCOUNTER 2024-03-05 13:09 | Outpatient (AMB) | payer MEDICARE, SELFPAY ==
[2024-03-05 13:18] VITALS: BP 154/82; PULSE 73; O2SAT 96
--- NOTE | 2024-03-05 13:18 | MHC.PC.OV ---
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 Required: No Accompanied by: Self / Same As Patient Allergies CHARLENE Inhibitors [CHARLENE INHIBITORS] Allergy (Unknown, Verified 03/05/24 13:21) COUGH SEASONAL ALLERGIES Allergy (Unknown, Uncoded 02/20/24 11:25) STUFFINESS, SNEEZING Tobacco use date assessed: 05/04/23 Fall risk assessment: No Falls in past year Last assessed Fall Risk: 03/05/24 Dental Screening Dental Screen Date: 03/05/24 Did you have a dental visit in the last 12 months?: No Did you have a dental problem in the last 6 months where you did not have access to dental care?: No Was dental information given to patient?: Patient has dentist HPI alergic reaction HPI Details GERD for 3 days; some dietary indiscretion [facility] Medical History Hyperlipidemia Hypertension Surgical History History of colonoscopy History of total replacement of right hip H/O pilonidal cyst History of right hip replacement Family History Father Heart disease Mother Head injury Brother No problems noted. Family/Other Diabetes Social History Housing: House Alcohol intake: never Patient Tobacco Use Status: Never used Tobacco e-Cigarette/Vaping Use: Never Used Second Hand Smoke Exposure: No service: No Current occupational status: retired Current occupational exposures/hazards: No Cognitive needs: No Hearing needs: Yes Vision needs: Yes (glasses) Questionnaire Thrive Questionnaire Date Thrive assessed: 05/04/23 AUDIT C Alcohol Use Questionnaire (AUDIT-C) 1. How often do you have a drink containing alcohol?: Never Total Score: 0 EMY-7 AMB Questionnaire EMY-7 Date EMY - 7 assessed: 05/04/23 Source: Developed by Drs. Jeff Maria, Nataliya Bal, Avtar Lozada and colleagues, with an educational capo from [employer]. Review of Systems Const Denies chills, Denies headache(s) and Denies weight loss ENT Denies headache(s) Card Denies chest pain, Denies syncope, Denies irregular heart rhythm and Denies dyspnea Resp Denies chest congestion, Denies cough and Denies dyspnea GI Denies abdominal pain, Denies change in stool character, Denies nausea and Denies vomiting Musc Denies deformity and Denies joint swelling Neuro Denies syncope and Denies headache(s) Physical exam (Primary Care) Vital Signs: Last Vital Signs Pulse 73 03/05/24 13:18 BP 154/82 H 03/05/24 13:18 Pulse Ox 96 03/05/24 13:18 Oxygen Delivery Method Room Air 03/05/24 13:18 BMI result Body Mass Index 30.0 Tobacco/Smoking Status: Tobacco use Status Tobacco use date assessed 05/04/23 03/05/24 13:23 Patient Tobacco Use Status Never used Tobacco 03/05/24 13:23 e-Cigarette/Vaping Use Never Used 03/05/24 13:23 Thrive Assessment: Date of Thrive Assessment Date Thrive assessed 05/04/23 03/05/24 13:23 Const General: cooperative, comfortable, no acute distress and alert Neck Neck: Yes no lymphadenopathy Thyroid: Thyroid normal Resp Effort & Inspection: normal respiratory effort Auscultation: clear to auscultation bilaterally Percussion: percussion normal Cardio Jugular venous distension: no JVD Palpation: normal PMI Rate: regular rate Rhythm: regular rhythm Heart sounds: S1 normal heart sound present and S2 normal heart sound present GI Inspection: Yes normal to inspection Palpation (GI): No hepatosplenomegaly present Skin General skin exam: no rashes or lesions noted Extrem General: Yes no clubbing, cyanosis or edema Coding Level of Care Code Est Pt Level 3 (39386) Diagnoses GERD (gastroesophageal reflux disease) K21.9 Assessment & Plan Assessment & Plan (1) GERD (gastroesophageal reflux disease): Code(s): K21.9 - Gastro-esophageal reflux disease without esophagitis Category: Medical Plan: rx sent Medications: New omeprazole 20 mg PO DAILY 30 tabs 1RF
== END 2024-03-05 13:32 | disposition home or self-care (01) ==
PROVIDERS: PCP Internal Medicine; Visit Provider Internal Medicine
DX: K21.9 Gastro-esophageal reflux disease without esophagitis (principal)

== ENCOUNTER → 2024-03-05 13:09 | Outpatient (BNVA) | payer MEDICARE, SELFPAY | PROVIDERS: PCP Internal Medicine; Visit Provider Internal Medicine | DX: K21.9 Gastro-esophageal reflux disease without esophagitis (principal) | CPT/HCPCS: 99212 ==

== ENCOUNTER 2024-04-17 06:04 | Outpatient (REF) | payer MEDICARE, SELFPAY ==
[2024-04-17 10:46] LABS: Glucose Fasting 121 mg/dL (60-99)
[2024-04-17 10:56] LABS: Estimated Average Glucose 146 mg/dL; Hemoglobin A1c % 6.7 % (<6.0)
== END 2024-04-17 06:05 | disposition home or self-care (01) ==
LOC: HO.HMGCLDS 06:04
PROVIDERS: PCP Internal Medicine; Visit Provider Internal Medicine
DX: R73.9 Hyperglycemia, unspecified (principal)
CPT/HCPCS: 36415; 82947; 83036

== ENCOUNTER 2024-04-23 10:36 | Outpatient (AMB) | payer MEDICARE, SELFPAY ==
--- NOTE | 2024-04-23 10:38 | A.OFFPC_ITS ---
Vital Signs 04/23/24 10:41 Height 5 ft 5 in Weight 177 lb 4 oz BMI 29.5 BP 130/72 Blood Pressure Location Lt brachial Position Sitting Pulse 59 Pulse Source Pulse Oximeter Temp 97.1 F Temp Source Skin Pulse Oximetry (%) 93 Oxygen Delivery Method Room Air Intake Visit Reasons: Follow Up Intake Note: Patient is here to follow up on DM. 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 Required: No Email Engineer: Not Required per policy Accompanied by: Self / Same As Patient Allergies CHARLENE Inhibitors [CHARLENE INHIBITORS] Allergy (Unknown, Verified 04/23/24 10:40) COUGH SEASONAL ALLERGIES Allergy (Unknown, Uncoded 04/23/24 10:40) STUFFINESS, SNEEZING Medication List - Last Reconciled 04/23/24 by Raoul Escudero MD amlodipine 5 mg PO DAILY atorvastatin 20 mg PO DAILY finasteride 5 mg PO DAILY loratadine (Allergy Relief (loratadine)) 10 mg PO DAILY PRN metformin 500 mg PO BID omeprazole 20 mg PO DAILY Tobacco use date assessed: 04/23/24 Fall risk assessment: No Falls in past year Last assessed Fall Risk: 04/23/24 Dental Screening Dental Screen Date: 04/23/24 Did you have a dental visit in the last 12 months?: No Did you have a dental problem in the last 6 months where you did not have access to dental care?: No Was dental information given to patient?: Patient has dentist HPI Follow Up HPI Details diabetes on rx;compliant and BS A1C fine [facility] Medical History Hyperlipidemia Hypertension Surgical History History of colonoscopy History of total replacement of right hip H/O pilonidal cyst History of right hip replacement Family History Father Heart disease Mother Head injury Brother No problems noted. Family/Other Diabetes Social History Housing: House Alcohol intake: never Patient Tobacco Use Status: Never used Tobacco e-Cigarette/Vaping Use: Never Used Second Hand Smoke Exposure: No service: No Current occupational status: retired Current occupational exposures/hazards: No Cognitive needs: No Hearing needs: Yes Vision needs: Yes (glasses) Questionnaire PHQ-9 Over the last 2 weeks, how often have you been bothered by any of the following problems? 1. Little interest or pleasure in doing things: not at all 2. Feeling down, depressed, or hopeless: not at all 3. Trouble falling or staying asleep, or sleeping too much: not at all 4. Feeling tired or having little energy: not at all 5. Poor appetite or overeating: not at all 6. Feeling bad about yourself - or that you are a failure or have let yourself or your family down: not at all 7. Trouble concentrating on things, such as reading the newspaper or watching television: not at all 8. Moving or speaking so slowly that other people could have noticed. Or the opposite - being so fidgety or restless that you have been moving around a lot more than usual: not at all 9. Thoughts that you would be better off or of hurting yourself in some way: not at all Total score: 0 Depression Screening Interpretation: Negative Depression Screening Done: Yes Source: Developed by Drs. Jeff Maira, Nataliya Bal, Avtar Lozada and colleagues, with an educational capo from [employer]. Thrive Questionnaire Date Thrive assessed: 04/23/24 I am a: Patient What is your living situation today?: I have a steady place to live Within the past 12 months, did the food you bought not last and you didn't have the money to get more?: Never true Within the past 12 months, did you worry whether your food would run out before you got money to buy more?: Never true Do you have trouble paying for medicines?: No Do you have trouble getting transportation to medical appointments?: No Do you have trouble paying your heating and electricity bill?: No Do you have trouble taking care of your child, family member or friend?: No Do you have trouble with day-to-day activities such as bathing, preparing meals, shopping, managing finances, etc.?: No Are you currently unemployed and looking for a job?: No Are you interested in more education?: No Please select the resources that you would like help with: None Currently or been in a relationship where the following occur: No concerns reported THRIVE Score: 0 AUDIT C Alcohol Use Questionnaire (AUDIT-C) 1. How often do you have a drink containing alcohol?: Never Total Score: 0 EMY-7 AMB Questionnaire EMY-7 Date EMY - 7 assessed: 04/23/24 Feeling nervous, anxious, or on edge: 0 = Not at all Not being able to stop or control worryin = Not at all Worrying too much about different things: 0 = Not at all Trouble relaxin = Not at all Being so restless that it is hard to sit still: 0 = Not at all Becoming easily annoyed or irritable: 0 = Not at all Feeling afraid as if something awful might happen: 0 = Not at all Total EMY-7 score (0-4 normal; 5-9 mild; 10-14 moderate; 15-21 severe): 0 Source: Developed by Drs. Jeff Maria, Nataliya Bal, Avtar Lozada and colleagues, with an educational capo from [employer]. Review of Systems Const Denies chills, Denies headache(s) and Denies weight loss ENT Denies headache(s) Card Denies chest pain, Denies syncope, Denies irregular heart rhythm and Denies dyspnea Resp Denies chest congestion, Denies cough and Denies dyspnea GI Denies abdominal pain, Denies change in stool character, Denies nausea and Denies vomiting Musc Denies deformity and Denies joint swelling Neuro Denies syncope and Denies headache(s) Physical exam (Primary Care) Vital Signs: Last Vital Signs Temp 97.1 F 04/23/24 10:41 Pulse 59 04/23/24 10:41 BP 130/72 04/23/24 10:41 Pulse Ox 93 04/23/24 10:41 Oxygen Delivery Method Room Air 04/23/24 10:41 BMI result Body Mass Index 29.5 Tobacco/Smoking Status: Tobacco use Status Tobacco use date assessed 04/23/24 04/23/24 10:45 Patient Tobacco Use Status Never used Tobacco 04/23/24 10:38 e-Cigarette/Vaping Use Never Used 04/23/24 10:38 PHQ-9: PHQ-9 Score PHQ-9: Total score 0 04/23/24 10:45 Depression Screening Interpretation: Negative Thrive Assessment: Date of Thrive Assessment Date Thrive assessed 04/23/24 04/23/24 10:45 Currently or been in a relationship where the following occur: No concerns reported Const General: cooperative, comfortable, no acute distress and alert Neck Neck: Yes no lymphadenopathy Thyroid: Thyroid normal Resp Effort & Inspection: normal respiratory effort Auscultation: clear to auscultation bilaterally Percussion: percussion normal Cardio Jugular venous distension: no JVD Palpation: normal PMI Rate: regular rate Rhythm: regular rhythm Heart sounds: S1 normal heart sound present and S2 normal heart sound present GI Inspection: Yes normal to inspection Palpation (GI): No hepatosplenomegaly present Skin General skin exam: no rashes or lesions noted Extrem General: Yes no clubbing, cyanosis or edema Coding Level of Care Code Est Pt Level 3 (56829) Diagnoses Diabetes mellitus with coincident hypertension E11.9; I10 Assessment & Plan Assessment & Plan (1) Diabetes mellitus with coincident hypertension: Code(s): E11.9 - Type 2 diabetes mellitus without complications; I10 - Essential (primary) hypertension Category: Medical Plan: stable; same rx Medications: Refilled metformin 500 mg PO BID 180 tabs 0RF
[2024-04-23 10:41] VITALS: BP 130/72; PULSE 59; TEMP 36.2; O2SAT 93; BMI 29.5
== END 2024-04-23 11:12 | disposition home or self-care (01) ==
PROVIDERS: PCP Internal Medicine; Visit Provider Internal Medicine
DX: E11.9 Type 2 diabetes mellitus without complications (principal); I10 Essential (primary) hypertension

== ENCOUNTER → 2024-04-23 10:36 | Outpatient (BNVA) | payer MEDICARE, SELFPAY | PROVIDERS: PCP Internal Medicine; Visit Provider Internal Medicine | DX: E11.9 Type 2 diabetes mellitus without complications (principal); I10 Essential (primary) hypertension | CPT/HCPCS: 99212 ==

== ENCOUNTER → 2024-05-03 09:23 | Outpatient (BNVA) | payer MEDICARE, SELFPAY | PROVIDERS: PCP Internal Medicine; Visit Provider Urology ==

== ENCOUNTER 2024-08-02 08:52 | Outpatient (REF) | payer MEDICARE, SELFPAY ==
--- NOTE | 2024-08-03 08:21 | MHC.AU.HA3 ---
Hearing Instrument Follow-Up- Binaural Date of Visit: 08/02/24 Right Ear: Make, Model, Color, Serial Number: Genesis RUSSO R SN: [id number] Color: Dada Silver Lamp Mechanic Repair Warranty: 05/14/2024 Lamp Mechanic Loss and Damage Warranty: 05/14/2024 [facility] Service Plan: 02/26/2025 Battery Size: Rechargeable Botany Technician/Slim Tube: Absolute Power Rec SnapFit #3 60 gain Earmold/Dome/CShell/SlimTip:Genesis Canal mold SN: [id number] Tonny: 03/13/2024 Type of Wax Guard: HearClear Dispensed By: [facility] Date of Fittin02/26/2022 Left Ear: Make, Model, Color, Serial Number: Genesis RUSSO R SN: [id number] Color: Dada Silver Lamp Mechanic Repair Warranty: 05/14/2024 Lamp Mechanic Loss and Damage Warranty: 05/14/2024 [facility] Service Plan: 02/26/2025 Battery Size: Rechargeable Botany Technician/Slim Tube: Absolute Power Botany Technician SnapFit #3 60 gain Earmold/Dome/CShell/SlimTip: Genesis Canal Mold [id number]/17/24 Type of Wax Guard: HearClear Dispensed By: [facility] Date of Fittin02/26/2022 Follow-Up Summary: Left aid dropped off . Found wax built up behind wax guard. Cleaned aid, vacuumed out wet mixer, replaced wax guard. Listening check positive. Recommendations: Recommendations: Hearing instrument follow-up or maintenance as needed. Diagnosis Code(s): Primary Diagnosis: H90.3 Bilateral Sensorineural Hearing Loss Signature: Provider: Janelle Calix, CCC-A
== END 2024-08-02 08:53 | disposition home or self-care (01) ==
LOC: HO.SH 08:52
PROVIDERS: Visit Provider Physician Assistant
DX: Z13.89 Encounter for screening for other disorder (principal)

== ENCOUNTER 2024-08-03 09:58 | Outpatient (REF) | payer SELFPAY | END 2024-08-03 09:59 | disposition home or self-care (01) | LOC: HO.HAP 09:58 | PROVIDERS: Visit Provider Physician Assistant | DX: Z13.89 Encounter for screening for other disorder (principal) ==

== ENCOUNTER 2024-08-09 07:33 | Outpatient (AMB) | payer MEDICARE, SELFPAY ==
[2024-08-09 07:53] VITALS: BP 134/74; PULSE 62; RESP 16; TEMP 36.2; O2SAT 96; BMI 29.2
--- NOTE | 2024-08-09 07:53 | A.OFFPC_ITS ---
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 Required: No Accompanied by: Self / Same As Patient Allergies CHARLENE Inhibitors [CHARLENE INHIBITORS] Allergy (Unknown, Verified 08/09/24 07:54) COUGH SEASONAL ALLERGIES Allergy (Unknown, Uncoded 08/09/24 07:54) STUFFINESS, SNEEZING Medication List - Last Reconciled 08/09/24 by Gianni Phelan PA-C amlodipine 5 mg PO DAILY atorvastatin 20 mg PO DAILY finasteride 5 mg PO DAILY loratadine (Allergy Relief (loratadine)) 10 mg PO DAILY PRN metformin 500 mg PO BID Tobacco use date assessed: 08/09/24 Fall risk assessment: No Falls in past year Last assessed Fall Risk: 08/09/24 Dental Screening Dental Screen Date: 08/09/24 Did you have a dental visit in the last 12 months?: Yes Did you have a dental problem in the last 6 months where you did not have access to dental care?: No Was dental information given to patient?: Patient has dentist HPI OFFICE VISIT COMPLEX HPI Details Patient is an 83-year-old male here today for a transfer of care visit. Previous PCP was Dr. Escudero. Patient has a past medical history significant for hypertension, BPH, hyperlipidemia, type 2 diabetes and GERD. No complaints today .. Type 2 diabetes: Today's A1c is 6.8, patient continues with the use of metformin 500 b.i.d.. . Hypertension: Patient's blood pressure acceptable today in office. Will continue on amlodipine at current dose. He otherwise denies any headaches, chest discomfort, dizziness. .. BPH: Patient continues to see [facility], continues on finasteride [facility] Medical History Hyperlipidemia Hypertension Surgical History History of colonoscopy History of total replacement of right hip H/O pilonidal cyst History of right hip replacement Family History Father Heart disease Mother Head injury Brother No problems noted. Family/Other Diabetes Social History Housing: House Alcohol intake: never Patient Tobacco Use Status: Never used Tobacco e-Cigarette/Vaping Use: Never Used Second Hand Smoke Exposure: No service: No Current occupational status: retired Current occupational exposures/hazards: No Cognitive needs: No Hearing needs: Yes Vision needs: Yes (glasses) Questionnaire PHQ-9 Over the last 2 weeks, how often have you been bothered by any of the following problems? 1. Little interest or pleasure in doing things: not at all 2. Feeling down, depressed, or hopeless: not at all 3. Trouble falling or staying asleep, or sleeping too much: not at all 4. Feeling tired or having little energy: not at all 5. Poor appetite or overeating: not at all 6. Feeling bad about yourself - or that you are a failure or have let yourself or your family down: not at all 7. Trouble concentrating on things, such as reading the newspaper or watching television: not at all 8. Moving or speaking so slowly that other people could have noticed. Or the opposite - being so fidgety or restless that you have been moving around a lot more than usual: not at all 9. Thoughts that you would be better off or of hurting yourself in some way: not at all Total score: 0 Depression Screening Interpretation: Negative Depression Screening Done: Yes 55800 - PHQ-9 Billing: Yes Source: Developed by Drs. Jeff Maria, Nataliya Bal, Avtar Lozada and colleagues, with an educational capo from [employer]. Thrive Questionnaire Date Thrive assessed: 08/09/24 I am a: Patient What is your living situation today?: I have a steady place to live Within the past 12 months, did the food you bought not last and you didn't have the money to get more?: Never true Within the past 12 months, did you worry whether your food would run out before you got money to buy more?: Never true Do you have trouble paying for medicines?: No Do you have trouble getting transportation to medical appointments?: No Do you have trouble paying your heating and electricity bill?: No Do you have trouble taking care of your child, family member or friend?: I choose not to answer this question Do you have trouble with day-to-day activities such as bathing, preparing meals, shopping, managing finances, etc.?: No Are you currently unemployed and looking for a job?: No Are you interested in more education?: No Please select the resources that you would like help with: None Currently or been in a relationship where the following occur: No concerns reported THRIVE Score: 0 AUDIT C Alcohol Use Questionnaire (AUDIT-C) 1. How often do you have a drink containing alcohol?: Never Total Score: 0 Score Reviewed/Action Taken: No EMY-7 AMB Questionnaire EMY-7 Date EMY - 7 assessed: 08/09/24 Feeling nervous, anxious, or on edge: 0 = Not at all Not being able to stop or control worryin = Not at all Worrying too much about different things: 0 = Not at all Trouble relaxin = Not at all Being so restless that it is hard to sit still: 0 = Not at all Becoming easily annoyed or irritable: 0 = Not at all Feeling afraid as if something awful might happen: 0 = Not at all Total EMY-7 score (0-4 normal; 5-9 mild; 10-14 moderate; 15-21 severe): 0 Source: Developed by Drs. Jeff Maria, Natailya Bal, Avtar Lozada and colleagues, with an educational capo from [employer]. EMY-7 Assessment Billing EMY-7 Assessment Tool: EMY-7 Assessment 46172 Review of Systems Const Denies headache(s) Eyes Denies loss of vision ENT Denies vertigo, Denies dizziness, Denies headache(s) and Denies sore throat Card Denies chest pain, Denies leg edema and Denies lightheadedness Resp Denies cough, Denies hemoptysis and Denies wheezing GI Denies abdominal pain, Denies melena, Denies constipation, Denies diarrhea and Denies vomiting Denies dysuria, Denies urinary frequency and Denies urinary urgency Musc Denies arthralgias, Denies joint swelling, Denies numbness and Denies tingling Neuro Denies Abnormal speech present, Denies behavioral changes, Denies vertigo, Denies dizziness, Denies headache(s), Denies loss of vision, Denies memory loss, Denies numbness and Denies tingling Psych Denies anxiety, Denies behavioral changes, Denies depression, Denies memory loss and Denies panic attacks Charanjit/Lymph Denies easy bleeding and Denies easy bruising Aller/Immun Denies wheezing Physical exam (Primary Care) Vital Signs: Last Vital Signs Temp 97.1 F 08/09/24 07:53 Pulse 62 08/09/24 07:53 Resp 16 08/09/24 07:53 BP 134/74 08/09/24 07:53 Pulse Ox 96 08/09/24 07:53 Oxygen Delivery Method Room Air 08/09/24 07:53 BMI result Body Mass Index 29.2 Tobacco/Smoking Status: Tobacco use Status Tobacco use date assessed 08/09/24 08/09/24 07:55 Patient Tobacco Use Status Never used Tobacco 08/09/24 07:55 e-Cigarette/Vaping Use Never Used 08/09/24 07:55 PHQ-9: PHQ-9 Score PHQ-9: Total score 0 08/09/24 08:04 Depression Screening Interpretation: Negative Thrive Assessment: Date of Thrive Assessment Date Thrive assessed 08/09/24 08/09/24 07:55 Currently or been in a relationship where the following occur: No concerns reported Const General: healthy appearing, no acute distress, alert and awake Nutritional Appearance: well nourished Orientation/consciousness: oriented to person, oriented to place and oriented to time HENMT Ears: TM's normal bilaterally General nose exam: Normal nasal mucous membranes and turbinates present Eyes Conjunctivae: conjunctivae normal Sclerae: sclerae normal Pupils: Equal, round and reactive pupils present Neck Neck: Yes no lymphadenopathy and Yes no JVD Thyroid: Thyroid normal Carotids: no bruits Resp Effort & Inspection: normal respiratory effort and not tachypneic Auscultation: no crackles, no rales, no rhonchi and no wheezes Cardio Rate: regular rate Rhythm: regular rhythm Heart sounds: no murmurs and normal S1 and S2 GI Palpation (GI): Soft to palpation, nontender, no hepatomegaly and no splenomegaly Auscultation: normal bowel sounds Skin General skin exam: no rashes or lesions noted and dry skin Neuro General: oriented to person, oriented to place and oriented to time Cranial nerves: Yes Equal, round and reactive pupils present Speech: No Abnormal speech present Gait exam (Neuro): Normal gait present Motor exam (neuro): no tremor noted Extrem Right upper extremity: full ROM Left upper extremity: full ROM Right lower extremity: full ROM; no edema Left lower extremity: full ROM; no edema Psych Mental Status: mental status grossly normal Speech and movement: Normal speech and movement present Affect: normal affect Attitude: cooperative Thought process: Normal thought process present Results AMB Hemoglobin A1c AMB Hemoglobin A1c 6.8 % Last Edit by Afsaneh Brennan CMA on 08/09/24 08:05 Results Reviewed Results Reviewed: Laboratory Last Values Hgb A1c (Clinic) 6.8 % (4.0-6.0) H 08/09/24 07:55 Coding Level of Care Code Est Pt Level 4 (28544) Diagnoses Diabetes mellitus with coincident hypertension E11.9; I10 Hypertension, unspecified type I10 Hypertension type: unspecified Hyperlipidemia, unspecified hyperlipidemia type E78.5 Hyperlipidemia type: unspecified Benign prostatic hyperplasia without lower urinary tract symptoms N40.0 Lower urinary tract symptom presence: symptoms absent Additional Codes EMY-7 Assessment Billing - EMY-7 Assessment Tool: EMY-7 Assessment 29173 ([id number]) PHQ-9 - 77584 - PHQ-9 Billing: Yes ([id number]) Assessment & Plan Assessment & Plan (1) Diabetes mellitus with coincident hypertension: Code(s): E11.9 - Type 2 diabetes mellitus without complications; I10 - Essential (primary) hypertension Category: Medical Plan: Patient's A1c today at 6.8. Continues on metformin 500 b.i.d.. Goal A1c is to remain below 7.0. (2) Hypertension: Code(s): I10 - Essential (primary) hypertension Category: Medical Qualifiers: Hypertension type: unspecified Qualified Code(s): I10 - Essential (primary) hypertension Plan: Patient's blood pressure acceptable today in office. Will continue his current dose of amlodipine with goal blood pressure to remain below 140/90 (3) Hyperlipidemia: Code(s): E78.5 - Hyperlipidemia, unspecified Category: Medical Qualifiers: Hyperlipidemia type: unspecified Qualified Code(s): E78.5 - Hyperlipidemia, unspecified Plan: Patient's recent fasting lipid panel showing good control of his total cholesterol and LDL. He continues on atorvastatin 20 mg. Goal LDL to remain below 100 (4) Benign prostate hyperplasia: Code(s): N40.0 - Benign prostatic hyperplasia without lower urinary tract symptoms Category: Medical Qualifiers: Lower urinary tract symptom presence: symptoms absent Qualified Code(s): N40.0 - Benign prostatic hyperplasia without lower urinary tract symptoms Plan: Continues to follow urology, continues on finasteride 5 mg with good effect. Orders: Orders AMB Hemoglobin A1c Today Gianni Phelan PA-C E11.9 - Type 2 diabetes mellitus without complications, I10 - Essential (primary) hypertension Complete Blood Count no Diff Today Gianni Phelan PA-C E78.5 - Hyperlipidemia, unspecified Hemoglobin A1c Today Gianni Phelan PA-C E11.9 - Type 2 diabetes mellitus without complications, I10 - Essential (primary) hypertension Microalbumin, Random (w Creat) Today Gianni Phelan PA-C I10 - Essential (primary) hypertension Comprehensive [place]. Panel Fast Today Gianni Phelan PA-C I10 - Essential (primary) hypertension Lipid Panel Today Gianni Phelan PA-C E78.5 - Hyperlipidemia, unspecified Medications: Changed From finasteride 5 mg PO DAILY 90 tabs 3RF To finasteride 1 tab 3 times per week 5 mg PO DAILY Gee Alvarez MD
== END 2024-08-09 08:19 | disposition home or self-care (01) ==
LOC: HO.HMCH 07:34
PROVIDERS: PCP Physician Assistant; Visit Provider Physician Assistant
DX: E11.9 Type 2 diabetes mellitus without complications (principal); I10 Essential (primary) hypertension; E78.5 Hyperlipidemia, unspecified; N40.0 Benign prostatic hyperplasia without lower urinary tract symptoms

== ENCOUNTER → 2024-08-09 07:33 | Outpatient (BNVA) | payer MEDICARE, SELFPAY | PROVIDERS: PCP Physician Assistant; Visit Provider Physician Assistant | DX: E11.9 Type 2 diabetes mellitus without complications (principal); I10 Essential (primary) hypertension; E78.5 Hyperlipidemia, unspecified; N40.0 Benign prostatic hyperplasia without lower urinary tract symptoms; Z79.84 Long term (current) use of oral hypoglycemic drugs | CPT/HCPCS: 83036; 96127; 99212 ==

== ENCOUNTER 2024-09-19 10:23 | Outpatient (REF) | payer MEDICARE, SELFPAY | END 2024-09-19 10:24 | disposition home or self-care (01) | LOC: HO.SH 10:23 | PROVIDERS: Visit Provider Physician Assistant | DX: Z13.89 Encounter for screening for other disorder (principal) ==

== ENCOUNTER 2024-10-01 09:58 | Outpatient (REF) | payer SELFPAY | END 2024-10-01 09:59 | disposition home or self-care (01) | LOC: HO.HAP 09:58 | PROVIDERS: Visit Provider Internal Medicine | DX: Z13.89 Encounter for screening for other disorder (principal) ==

== ENCOUNTER 2024-10-06 09:54 | Emergency (ER) | payer MEDICARE, SELFPAY ==
--- NOTE | ~2024-10-06 | US_ITS ---
CLINICAL HISTORY: right thigh pain r o DVT Venous duplex ultrasound right lower extremity Comparison: None provided Findings: The visualized deep veins are fully compressible with normal Doppler color flow and spectral tracings. No popliteal cyst. IMPRESSION: 1. Negative for right lower extremity deep vein thrombosis. This document has been electronically signed by: David Wharton MD on 10/06/2024 12:37:43
--- NOTE | ~2024-10-06 | XR_ITS ---
CLINICAL HISTORY: atraumatic R hip pain - s p JEFF AP pelvis and two views of the right hip. Comparison: None provided Findings: There is a right hip total prosthesis in anatomic alignment without evidence of hardware loosening or periprosthetic fracture. Degenerative changes of the lower lumbar spine. The soft tissues are unremarkable. No disruption of the pelvic ring. Advanced osteoarthritis of the left hip. IMPRESSION: No acute findings. This document has been electronically signed by: David Wharton MD on 10/06/2024 12:08:13
--- NOTE | ~2024-10-06 | XR_ITS ---
CLINICAL HISTORY: atraumatic R thigh pain 2 view right femur Comparison: None provided Findings: There is a right hip total prosthesis in anatomic alignment. No evidence of hardware loosening or periprosthetic fracture. No knee effusion. Minimal arthritic change of the right knee. No radiopaque foreign body. Acute fracture deformity. No lytic or blastic bone lesion. Arterial vascular calcifications. IMPRESSION: 1. Normal right femur This document has been electronically signed by: David Wharton MD on 10/06/2024 12:07:18
[2024-10-06 10:06] VITALS: BP 155/61; BP 168/92; PULSE 76; PULSE 82; RESP 17; TEMP 36.7; O2SAT 95; O2SAT 97; BMI 29.1
[2024-10-06 10:11] VITALS: BP 155/61; PULSE 76; RESP 17; TEMP 36.7; O2SAT 95
--- NOTE | 2024-10-06 10:19 | ED.EXTPRO ---
HPI - Extremity Problem General Chief complaint: Extremity Problem Stated complaint: RIGHT HIP PAIN X24H Time Seen by Provider: 10/06/24 10:04 Source: patient and EMS Mode of arrival: EMS Limitations: no limitations History of Present Illness ED Provider: SISI VELAZQUEZ PA-C HPI Narrative: 83 year old male with pmhx significant for GERD, DM, HTN, HLD, BPH, s/p right JEFF 05/28/19, presents to the ED today via EMS for evaluation of severe right leg pain x24 hours. Reports pain is localized to right buttock/right hamstring which he describes this as a sharp, tight sensation that is only present on bearing weight/ ambulating. Admits his right lower leg feels odd . Reports doing a lot of walking from store to store a few days ago and this pain began the following day. States he does not typically ambulate this much. 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 He denies any trauma/injury/falls. Reports trialing Motrin with minimal relief. Reports some relief with massaging the area. Denies hx VTE. Not on AC. Denies fever, chills, chest pain, SOB, palpitations, numbness/tingling/weakness. Related Data Home Medications ?Medication ?Instructions ?Recorded ?Confirmed finasteride 5 mg tablet 5 mg PO DAILY 08/09/24 08/09/24 Previous Rx's ?Medication ?Instructions ?Recorded loratadine 10 mg tablet (Allergy 10 mg PO DAILY PRN allergy 08/25/23 Relief (loratadine)) symptoms #30 tabs amlodipine 5 mg tablet 5 mg PO DAILY #90 tabs 03/27/24 atorvastatin 20 mg tablet 20 mg PO DAILY #90 tabs 03/27/24 metformin 500 mg tablet 500 mg PO BID #180 tabs 06/25/24 baclofen 5 mg tablet 5 mg PO Q12H PRN muscle pain #3 10/06/24 tabs lidocaine 5 % topical patch 1 patch topical DAILY #15 ea 10/06/24 (Lidoderm) Allergies Allergy/AdvReac Type Severity Reaction Status Date / Time CHARLENE Inhibitors (CHARLENE Allergy Unknown COUGH Verified 10/06/24 10:10 INHIBITORS) SEASONAL ALLERGIES Allergy Unknown STUFFINESS, Uncoded 10/06/24 10:10 SNEEZING Review of Systems Review of Systems: Constitutional: No fever, chills, fatigue, night sweats, weight changes ENT/Mouth: No ear pain, hearing loss, nasal congestion, sinus pain, rhinorrhea, sore throat Eyes: No eye pain, swelling, redness, vision changes, discharge Cardio: No chest pain, palpitations, ALEGRIA, orthopnea, peripheral edema Pulm: No SOB, cough, sputum, wheezing, dyspnea, hemoptysis GI: No nausea, vomiting, hematemesis, abdominal pain, diarrhea, constipation, hematochezia, melena : No irregular bleeding, dysuria, frequency, urgency, hesitancy, hematuria, flank pain, urinary flow changes, urinary incontinence or retention MSK: No back pain, neck pain, joint pain, myalgias, +right hip pain Skin: No lesions, rashes Neuro: No weakness, numbness, paresthesias, LOC, dizziness, headache Psych: No anxiety/panic, depression, SI/HI, AH/VH All other systems reviewed and are negative. [facility] [place] Past Medical History Attestation statement: The following information was validated with the patient. Source: old records reviewed and nursing notes reviewed Medical History Hyperlipidemia Hypertension Surgical History History of colonoscopy History of total replacement of right hip H/O pilonidal cyst History of right hip replacement Family History Family History Father Heart disease Mother Head injury Brother No problems noted. Family/Other Diabetes Social History Social History Housing: House Alcohol intake: never Patient Tobacco Use Status: Never used Tobacco e-Cigarette/Vaping Use: Never Used Second Hand Smoke Exposure: No service: No Current occupational status: retired Current occupational exposures/hazards: No Cognitive needs: No Hearing needs: Yes Vision needs: Yes (glasses) Physical Exam Vital Signs: Vital Signs: Last Vital Signs Temp 98.6 F 10/06/24 16:16 Pulse 66 10/06/24 16:16 Resp 16 10/06/24 16:16 BP 150/60 H 10/06/24 16:16 Pulse Ox 100 10/06/24 16:16 O2 Del Method Room Air 10/06/24 16:16 BMI result Body Mass Index 29.1 hypertensive, afebrile General: Well appearing, in no acute distress. Skin: Warm, dry, intact. No rashes or lesions. Head: Normocephalic, atraumatic. EENT: Hearing is intact b/l. Conjunctiva clear. PERRLA. EOM intact. Moist mucous membranes.? Neck: Supple without LAD Cardiac: Chest wall symmetric. RRR Lungs: Normal respiratory effort without accessory muscle use. CTA bilaterally Abdomen: Soft, non-tender, non-distended. No rebound tenderness or guarding Back: No midline spinous or paraspinal tenderness. No step off deformity. Ext: +no overlying skin changes to rigt hip/tight. no deformity. No rashes. He is ttp of right buttock into right lateral thigh, pain is exacerbated with flexion of the right hip. No calf tenderness. 2+dp/pt pulse intact. Neuro: AOx3. Normal speech. Strength 4/5 intact throughout. Sensation intact to light touch. NV intact distally. Course Course Course Narrative: 1210 -- CBC without leukocytosis. No anemia. H&H stable. Chemistry without acute electrolyte abnormalities requiring intervention. No JOSELYN. Random glucose 132. Normal liver function. X-ray right hip/pelvis showing right hip total prosthesis in an anatomic alignment, no evidence of hardware malfunction or fracture. X-ray right femur normal. venous duplex pending. > medicated with tylenol, baclofen and IVF. plan to re-evaluate. 1300 -- venous duplex of RLE does not demonstrate DVT. work up is unremarkable. > pain likely muscular in etiology secondary to patient ambulating for long period of time a few days ago. He is not in rhabdomyolysis. Discussed disposition with patient. He currently resides in a home and has to ascend stairs to the 2nd level. We discussed physical therapy evaluation and he would like me to place a consult. PT/CM consultations placed. Upon discussing wishes, patient tells me danna is a DNR/DNI. AO3 - capable of making his own decisions. > physician observation initiated at this time Time: 15:56 Date: 10/06/24 Provider: SOFI Stewart Physician observation ended at 1556. Patient evaluated by physical therapy who is recommending outpatient PT. case management will be setting this up. disposition discussed with patient - he is anxious for discharge home. discussed supportive treatment including heating pads/ tylenol/ lido patches. Patient has remained stable throughout ED visit today. Discussed worrisome signs and symptoms and when to return to the ED. All questions answered at this time. Patient is agreeable with disposition and stable for discharge. his brother will be driving him home today. Medications Administered Discontinued Medications Generic Name Dose Route Start Last Admin Trade Name Reuben PRN Reason Stop Dose Admin Baclofen 10 mg 10/06/24 10:34 10/06/24 10:57 Baclofen 10 Mg Tablet PO 10/06/24 10:35 10 mg ONCE ONE Administration Sodium Chloride 1,000 mls @ 500 mls/hr 10/06/24 10:45 10/06/24 13:00 Ns IV 10/06/24 12:44 Infused .Q2H KENNY Infusion Acetaminophen 1,000 mg in 100 mls @ 400 mls/hr 10/06/24 10:34 10/06/24 11:20 Ofirmev IV 10/06/24 10:48 Infused ONCE ONE Infusion Medical Decision Making Medical Decision Making [facility] Narrative: 83 year old male with pmh significant for GERD, DM, HTN, HLD, BPH, s/p right JEFF 05/28/19, presents to the ED today via EMS for evaluation of severe right leg pain x24 hours. Patient is hypertensive, vitals are otherwise WNL. He is well-appearing and in no acute distress. On exam, there are no overlying skin changes to rigt hip/tight. no deformity. No rashes. He is ttp of right buttock into right lateral thigh, pain is exacerbated with flexion of the right hip. No calf tenderness. no midline spinous tenderness or step off. nv intact distally. Differential diagnosis includes msk sprain/ strain, muscle spasm, dehydration, anemia, electrolyte abnormality, fracture, rhabdomylysis, sciatica, hardware malfunction, DVT Plan for screening labs, XR, pain control, fluids, re-evaluation. Differential Diagnosis Differential Diagnoses: The differential diagnosis associated with the presentation includes as above. Admission/Observation Not indicated Lab Data [facility] Lab Attestation statement: I reviewed the patient's lab results. As above 10/06/24 10:46 10/06/24 10:46 Labs: Lab Results 10/06/24 Range/Units 10:46 WBC 9.6 (4.8-10.8) X10*3/uL RBC 5.12 (4.60-5.80) X10*6/uL Hgb 15.7 (14.0-18.0) g/dl Hct 45.9 (42.0-52.0) % MCV 89.6 (80.0-98.0) fL MCH 30.7 (27.0-33.0) pg MCHC 34.2 (31.0-36.0) g/dl RDW 13.8 (11.0-16.0) % Plt Count 261 (160-400) X10*3/uL MPV 9.8 (9.4-12.4) fL Immature Gran % (Auto) 0.4 (0.0-0.4) % Neut % (Auto) 78.9 H (45-73) % Lymph % (Auto) 13.8 L (20-40) % [place] % (Auto) 5.0 (2-11) % Eos % (Auto) 0.8 (0-4) % Baso % (Auto) 1.1 (0-2) % Lymph # (Auto) 1.3 (1.2-4.9) X10*3/uL [place] # (Auto) 0.5 (0.1-1.2) X10*3/uL Eos # (Auto) 0.1 (0.0-0.4) X10*3/uL Baso # (Auto) 0.1 (0.0-0.2) X10*3/uL Abs Immat Gran (auto) 0.04 H (0.00-0.03) X10*3/uL Absolute Neuts (auto) 7.6 (2.0-8.3) x10*3/uL Absolute Nucleated RBC 0.000 (0.0-0.012) X10*3/uL Nucleated RBC % (auto) 0.0 (0.0-0.2) /100WBC Sodium 141 (135-145) mmol/L Potassium 4.2 (3.3-5.1) mmol/L Chloride 107 (96-108) mmol/L Carbon Dioxide 26 (22-29) mmol/L Anion Gap 12 (12-20) BUN 12 (9-16) mg/dL Creatinine 1.07 (0.5-1.4) mg/dL Estim Creat Clear Calc 51.6 Estimated GFR > 60 Random Glucose 132 H (60-115) mg/dL Calcium 9.0 (8.4-10.2) mg/dL Magnesium 2.4 (1.6-2.6) mg/dL Total Bilirubin 0.7 (0.0-1.0) mg/dL AST 28 (5-37) U/L ALT 26 (0-40) U/L Alkaline Phosphatase 51 (39-117) U/L Total Creatine Kinase 68 (38-174) U/L Total Protein 7.4 (6.5-8.0) g/dL Albumin 4.7 (3.5-5.0) g/dL Independent Interpretation I performed an independent interpretation of an: Plain X-Ray and Ultrasound Interpretation: X-ray right hip/pelvis without acute fracture, hardware and alignment X-ray right femur without fracture Venous duplex right lower extremity without DVT Radiology Impression Discussion of test interpretation with radiology: I have reviewed the radiologist's reading. Radiologist Impression: Date of Service: 10/06/24 Procedure(s): US venous duplex LE RT Accession Number(s): [id number] cc: Gianni Phelan PA-C; Sisi Velazquez~ CLINICAL HISTORY: right thigh pain r o DVT Venous duplex ultrasound right lower extremity Comparison: None provided Findings: The visualized deep veins are fully compressible with normal Doppler color flow and spectral tracings. No popliteal cyst. IMPRESSION: 1. Negative for right lower extremity deep vein thrombosis. This document has been electronically signed by: David Wharton MD on 10/06/2024 12:37:43 Date of Service: 10/06/24 Procedure(s): XR hip RT w PEL1V Accession Number(s): [id number] cc: Gianni Phelan PA-C; Sisi Velazquez~ CLINICAL HISTORY: atraumatic R hip pain - s p JEFF AP pelvis and two views of the right hip. Comparison: None provided Findings: There is a right hip total prosthesis in anatomic alignment without evidence of hardware loosening or periprosthetic fracture. Degenerative changes of the lower lumbar spine. The soft tissues are unremarkable. No disruption of the pelvic ring. Advanced osteoarthritis of the left hip. IMPRESSION: No acute findings. This document has been electronically signed by: David Wharton MD on 10/06/2024 12:08:13 Date of Service: 10/06/24 Procedure(s): XR femur RT 2V Accession Number(s): [id number] cc: Gianni Phelan PA-C; Sisi Velazquez CLINICAL HISTORY: atraumatic R thigh pain 2 view right femur Comparison: None provided Findings: There is a right hip total prosthesis in anatomic alignment. No evidence of hardware loosening or periprosthetic fracture. No knee effusion. Minimal arthritic change of the right knee. No radiopaque foreign body. Acute fracture deformity. No lytic or blastic bone lesion. Arterial vascular calcifications. IMPRESSION: 1. Normal right femur This document has been electronically signed by: David Wharton MD on 10/06/2024 12:07:18 Independent Historian Clinical information obtained from an independent historian. History obtained from or confirmed by: EMS External Record Review External record reviewed: Inpatient record Prescription Management I considered prescription management with: Pain Medication Social Determinants Patient?s care significantly limited by Social Determinants of Health including: Other Social Determinant of Health Critical Care Time Critical Care Time Critical Care Time: No Discharge Plan Discharge Clinical Impression: Pain of right thigh Patient Disposition: Home, Self-Care Instructions: Leg Pain (ED) Additional Instructions: You were seen in the emergency department due to hip pain. Your overall workup was reassuring. Please follow-up with your primary care physician. You were seen and evaluated by Physical therapy who recommend outpatient services. This will be set up through the upper caser. Please resume all at-home medications as prescribed. If any new or worsening symptoms occur including but not limited to worsening pain, severe chest pain or shortness for breath, please seek emergent care. Prescriptions: New baclofen 5 mg tablet 5 mg PO Q12H PRN (Reason: muscle pain) Qty: 3 0RF lidocaine [Lidoderm] 5 % adhesive patch,medicated 1 patch topical DAILY Qty: 15 0RF Rx Instructions: leave on most painful area for up to 12 hrs No Action loratadine [Allergy Relief (loratadine)] 10 mg tablet 10 mg PO DAILY PRN (Reason: allergy symptoms) Qty: 30 3RF atorvastatin 20 mg tablet 20 mg PO DAILY Qty: 90 3RF amlodipine 5 mg tablet 5 mg PO DAILY Qty: 90 3RF metformin 500 mg tablet 500 mg PO BID Qty: 180 3RF finasteride 5 mg tablet 5 mg PO DAILY Rx Instructions: 1 tab 3 times per week Referrals: Gianni Phelan PA-C [Primary Care Provider, Internal Medicine] Interventions: ED Discharge Assessment Last Done: 10/06/24 16:16 Discharge Date/Time: 10/06/24 16:32 Print Language: Trinidadian
[2024-10-06 10:50] LABS: MANUAL DIFF FLAG NO
[2024-10-06 10:51] LABS: Hematocrit 45.9 % (42.0-52.0); Hemoglobin 15.7 g/dl (14.0-18.0); Imm Gran Abs Auto 0.04 X10*3/uL (0.00-0.03); Imm Gran Pct Auto 0.4 % (0.0-0.4); Lymphocytes Absolute Auto 1.3 X10*3/uL (1.2-4.9); Mean Corpuscular HGB Conc 34.2 g/dl (31.0-36.0); Mean Corpuscular Hemoglobin 30.7 pg (27.0-33.0); Mean Corpuscular Volume 89.6 fL (80.0-98.0); NRBC Abs Auto 0.000 X10*3/uL (0.0-0.012); NRBC Pct Auto 0.0 /100WBC (0.0-0.2); Platelet Count 261 X10*3/uL (160-400); Red Blood Count 5.12 X10*6/uL (4.60-5.80); White Blood Count 9.6 X10*3/uL (4.8-10.8)
[2024-10-06 11:07] LABS: Alanine Aminotransferase 26 U/L (0-40); Albumin Level 4.7 g/dL (3.5-5.0); Alkaline Phosphatase 51 U/L (39-117); Anion Gap 12 (12-20); Aspartate Amino Transferase 28 U/L (5-37); Blood Urea Nitrogen 12 mg/dL (9-16); Calcium 9.0 mg/dL (8.4-10.2); Carbon Dioxide 26 mmol/L (22-29); Chloride 107 mmol/L (96-108); Creatinine Clr Calc Pharmacy 51.6; Estimated Glomerular Filt Rate > 60; Magnesium 2.4 mg/dL (1.6-2.6); Potassium 4.2 mmol/L (3.3-5.1); Sodium 141 mmol/L (135-145); Total Protein 7.4 g/dL (6.5-8.0)
[2024-10-06 12:00] VITALS: BP 158/88; PULSE 80; RESP 17; TEMP 37; O2SAT 99
--- NOTE | 2024-10-06 13:19 | PC.NURSE ---
PT at bedside for eval.
[2024-10-06 14:00] VITALS: BP 158/81; PULSE 82; RESP 16; TEMP 37; O2SAT 95
--- NOTE | 2024-10-06 14:06 | MHC.CM.PN ---
CM RECEIVED ED CM CONSULT. CM MET WITH PT IN ED AT BEDSIDE. 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 PT IS FUNCTIONALLY INDEPENDENT BUT DOES HAVE A CANE AND WALKER AT HOME. PT HAS EVENING MEAL PREPARED DAILY BY A [employer] CLASSIFIED COPY CONTROL CLERK. +HCP (HIS BROTHER) COPY AT HOME. [place]ZZ[place] [facility] [facility] [place]: P.T. REC OP SERVICES, PT IS IN AGREEMENT WITH THIS PLAN. PROVIDER UPDATED. PT WILL CALL FOR A RIDE HOME.
[2024-10-06 15:58] VITALS: BP 150/60; PULSE 66; RESP 16; TEMP 37; O2SAT 100
[2024-10-06 16:16] VITALS: BP 150/60; PULSE 66; RESP 16; TEMP 37; O2SAT 100
== END 2024-10-06 16:32 | disposition home or self-care (01) ==
PROVIDERS: Physician Assistant Medical; Emergency Provider Emergency Medicine; PCP Physician Assistant
DX: M79.604 Pain in right leg (principal); E11.9 Type 2 diabetes mellitus without complications; I10 Essential (primary) hypertension; E78.5 Hyperlipidemia, unspecified; K21.9 Gastro-esophageal reflux disease without esophagitis; Z96.641 Presence of right artificial hip joint
CPT/HCPCS: 36415; 73502; 73552; 80053; 82550; 83735; 85025; 93971; 96361; 96374; 97161; 99284; J0131

== ENCOUNTER → 2024-10-06 10:33 | Outpatient (BNV) | payer MEDICARE, SELFPAY | PROVIDERS: Emergency Provider Emergency Medicine; PCP Physician Assistant; Visit Provider Radiology Diagnostic Radiology | DX: M79.651 Pain in right thigh (principal); Z96.641 Presence of right artificial hip joint; M17.11 Unilateral primary osteoarthritis, right knee | CPT/HCPCS: 73502; 73552; 93971 ==

== ENCOUNTER 2024-11-07 07:00 | Outpatient (REF) | payer MEDICARE, SELFPAY ==
[2024-11-07 10:40] LABS: Hematocrit 46.2 % (42.0-52.0); Hemoglobin 15.2 g/dl (14.0-18.0); Mean Corpuscular HGB Conc 32.9 g/dl (31.0-36.0); Mean Corpuscular Hemoglobin 30.0 pg (27.0-33.0); Mean Corpuscular Volume 91.1 fL (80.0-98.0); NRBC Abs Auto 0.000 X10*3/uL (0.0-0.012); NRBC Pct Auto 0.0 /100WBC (0.0-0.2); Platelet Count 351 X10*3/uL (160-400); Red Blood Count 5.07 X10*6/uL (4.60-5.80); White Blood Count 8.1 X10*3/uL (4.8-10.8)
[2024-11-07 11:18] LABS: Alanine Aminotransferase 30 U/L (0-40); Albumin Level 4.4 g/dL (3.5-5.0); Alkaline Phosphatase 58 U/L (39-117); Anion Gap 16 (12-20); Aspartate Amino Transferase 33 U/L (5-37); Blood Urea Nitrogen 17 mg/dL (9-16); Calcium 8.8 mg/dL (8.4-10.2); Carbon Dioxide 25 mmol/L (22-29); Chloride 106 mmol/L (96-108); Cholesterol 156 mg/dL (<200); Estimated Glomerular Filt Rate > 60; HDL Cholesterol 42 mg/dL (>40); Potassium 3.8 mmol/L (3.3-5.1); Sodium 143 mmol/L (135-145); Total Protein 7.1 g/dL (6.5-8.0); Triglycerides 100 mg/dL (<150)
[2024-11-07 11:26] LABS: Hemoglobin A1C 266.8356 umol/L; Total Hemoglobin (HGBA1C) 5146.6968 umol/L
== END 2024-11-07 07:01 | disposition home or self-care (01) ==
LOC: HO.HMGCLDS 07:00
PROVIDERS: PCP Physician Assistant; Visit Provider Physician Assistant
DX: E11.9 Type 2 diabetes mellitus without complications (principal); E78.5 Hyperlipidemia, unspecified; I10 Essential (primary) hypertension
CPT/HCPCS: 36415; 80053; 80061; 82043; 82570; 83036; 85027

== ENCOUNTER 2024-11-14 08:41 | Outpatient (AMB) | payer MEDICARE, SELFPAY ==
--- NOTE | 2024-11-14 08:46 | MHC.PC.OV ---
Vital Signs 11/14/24 08:47 Height 5 ft 5 in Weight 169 lb 2 oz BMI 28.1 BP 144/68 H Blood Pressure Location Lt brachial Position Sitting Respiration 16 Pulse 77 Pulse Source Pulse Oximeter Temp 97.0 F Temp Source Temporal Artery Scan Pulse Oximetry (%) 94 Oxygen Delivery Method Room Air Intake Visit Reasons: 3 month Allergies CHARLENE Inhibitors (CHARLENE INHIBITORS) Allergy (Unknown, Verified 11/14/24 08:54) COUGH SEASONAL ALLERGIES Allergy (Unknown, Uncoded 11/14/24 08:54) STUFFINESS, SNEEZING Medication List - Last Reconciled 11/14/24 by Gianni Phelan PA-C amlodipine 5 mg PO DAILY atorvastatin 20 mg PO DAILY finasteride 5 mg PO DAILY lidocaine 5% (Lidoderm) 1 patch topical DAILY loratadine (Allergy Relief (loratadine)) 10 mg PO DAILY PRN metformin 500 mg PO BID Tobacco use date assessed: 11/14/24 Fall risk assessment: No Falls in past year Last assessed Fall Risk: 11/14/24 Dental Screening Dental Screen Date: 11/14/24 Did you have a dental visit in the last 12 months?: Yes Did you have a dental problem in the last 6 months where you did not have access to dental care?: No Was dental information given to patient?: Patient has dentist HPI 3 month HPI Details Patient is an 83-year-old male here today for a follow-up visit. Patient has a past medical history significant for hypertension, BPH, hyperlipidemia, type 2 diabetes and GERD. Concerns--> The patient reported visiting the emergency room on October 03 due to severe pain in the right foot, which prevented him from putting pressure on it. This pain was on the same side as a previous hip replacement done in 2019. Emergency room evaluations included x-rays and an ultrasound, which ruled out blood clots, and the patient was prescribed baclofen. Currently, the patient uses a cane for ambulation due to instability without it and reports tightness in the leg and tingling in the toes. The patient has a history of osteoarthritis, confirmed by x-rays showing advanced osteoarthritis in the left hip, with intact hardware in the right hip. .. Type 2 diabetes: Most recent A1c at 6.9 from 6.8, patient continues with the use of metformin 500 b.i.d.. . Hypertension: Patient's blood pressure slightly elevated today in office. Will continue on amlodipine at current dose. He otherwise denies any headaches, chest discomfort, dizziness. He does not regularly check his blood pressure at home and advised to do so. PLAN Will supply patient with paper Rx for blood pressure monitor. Considering increasing amlodipine to maximal 10 mg dose. .. BPH: Patient continues to see [facility], continues on finasteride. Laboratory Tests 02/10/24 04/17/24 08/09/24 07:18 06:24 07:55 RBC Creatinine Fasting Glucose Hemoglobin A1c % 7.8 H 6.7 H Hgb A1c (Clinic) 6.8 H LDL Cholesterol, C alc Urine Microalbumin 11/07/24 11/07/24 07:05 07:10 RBC 5.07 Creatinine 0.97 Fasting Glucose 113 H Hemoglobin A1c % 6.9 H Hgb A1c (Clinic) LDL Cholesterol, C alc 94 Urine Microalbumin < 5.0 PFSH Medical History (Reviewed 11/14/24 @ 08:[address] [facility]) Hyperlipidemia Hypertension Surgical History History of colonoscopy History of total replacement of right hip H/O pilonidal cyst History of right hip replacement Family History Father Heart disease Mother Head injury Brother No problems noted. Family/Other Diabetes Social History Housing: House Alcohol intake: never Patient Tobacco Use Status: Never used Tobacco e-Cigarette/Vaping Use: Never Used Second Hand Smoke Exposure: No service: No Current occupational status: retired Current occupational exposures/hazards: No Cognitive needs: No Hearing needs: Yes Vision needs: Yes (glasses) Questionnaire PHQ-9 Over the last 2 weeks, how often have you been bothered by any of the following problems? 1. Little interest or pleasure in doing things: not at all 2. Feeling down, depressed, or hopeless: not at all 3. Trouble falling or staying asleep, or sleeping too much: not at all 4. Feeling tired or having little energy: not at all 5. Poor appetite or overeating: not at all 6. Feeling bad about yourself - or that you are a failure or have let yourself or your family down: not at all 7. Trouble concentrating on things, such as reading the newspaper or watching television: not at all 8. Moving or speaking so slowly that other people could have noticed. Or the opposite - being so fidgety or restless that you have been moving around a lot more than usual: not at all 9. Thoughts that you would be better off or of hurting yourself in some way: not at all Total score: 0 Depression Screening Interpretation: Negative Depression Screening Done: Yes 00842 - PHQ-9 Billing: Yes Source: Developed by Drs. Jeff Maria, Nataliya Bal, Avtar Lozada and colleagues, with an educational capo from [employer]. Thrive Questionnaire Date Thrive assessed: 08/02/24 I am a: Patient What is your living situation today?: I have a steady place to live Within the past 12 months, did the food you bought not last and you didn't have the money to get more?: Never true Within the past 12 months, did you worry whether your food would run out before you got money to buy more?: Never true Do you have trouble paying for medicines?: No Do you have trouble getting transportation to medical appointments?: No Do you have trouble paying your heating and electricity bill?: No Do you have trouble taking care of your child, family member or friend?: I choose not to answer this question Do you have trouble with day-to-day activities such as bathing, preparing meals, shopping, managing finances, etc.?: No Are you currently unemployed and looking for a job?: No Are you interested in more education?: No Please select the resources that you would like help with: None Currently or been in a relationship where the following occur: No concerns reported THRIVE Score: 0 AUDIT C Alcohol Use Questionnaire (AUDIT-C) 1. How often do you have a drink containing alcohol?: Never 3. How often do you have six or more drinks on one occasion?: Never Total Score: 0 Score Reviewed/Action Taken: No EMY-7 AMB Questionnaire EMY-7 Date EMY - 7 assessed: 08/09/24 Feeling nervous, anxious, or on edge: 0 = Not at all Not being able to stop or control worryin = Not at all Worrying too much about different things: 0 = Not at all Trouble relaxin = Not at all Being so restless that it is hard to sit still: 0 = Not at all Becoming easily annoyed or irritable: 0 = Not at all Feeling afraid as if something awful might happen: 0 = Not at all Total EMY-7 score (0-4 normal; 5-9 mild; 10-14 moderate; 15-21 severe): 0 Source: Developed by Drs. Jeff Maria, Nataliya Bal, Avtar Lozada and colleagues, with an educational capo from [employer]. EMY-7 Assessment Billing EMY-7 Assessment Tool: EMY-7 Assessment 16099 Review of Systems Const Denies headache(s) Eyes Denies loss of vision ENT Denies vertigo, Denies dizziness, Denies headache(s) and Denies sore throat Card Denies chest pain, Denies leg edema and Denies lightheadedness Resp Denies cough, Denies hemoptysis and Denies wheezing GI Denies abdominal pain, Denies melena, Denies constipation, Denies diarrhea and Denies vomiting Denies dysuria, Denies urinary frequency and Denies urinary urgency Musc Denies arthralgias, Denies joint swelling, Denies numbness and Denies tingling Neuro Denies Abnormal speech present, Denies behavioral changes, Denies vertigo, Denies dizziness, Denies headache(s), Denies loss of vision, Denies memory loss, Denies numbness and Denies tingling Psych Denies anxiety, Denies behavioral changes, Denies depression, Denies memory loss and Denies panic attacks Charanjit/Lymph Denies easy bleeding and Denies easy bruising Aller/Immun Denies wheezing Physical exam (Primary Care) Vital Signs: Last Vital Signs Temp 97.0 F 11/14/24 08:47 Pulse 77 11/14/24 08:47 Resp 16 11/14/24 08:47 BP 144/68 H 11/14/24 08:47 Pulse Ox 94 11/14/24 08:47 Oxygen Delivery Method Room Air 11/14/24 08:47 Care Plan Goal for BP management: Perform home blood pressure monitoring ? white coat Next steps: Considering increasing amlodipine dose to 10 mg for better blood pressure control BMI result Body Mass Index 28.1 Tobacco/Smoking Status: Tobacco use Status Tobacco use date assessed 11/14/24 11/14/24 08:51 Patient Tobacco Use Status Never used Tobacco 11/14/24 08:51 e-Cigarette/Vaping Use Never Used 11/14/24 08:51 PHQ-9: PHQ-9 Score PHQ-9: Total score 0 11/14/24 08:56 Depression Screening Interpretation: Negative Thrive Assessment: Date of Thrive Assessment Date Thrive assessed 08/02/24 11/14/24 08:51 Currently or been in a relationship where the following occur: No concerns reported Const General: healthy appearing, no acute distress, alert and awake Nutritional Appearance: well nourished Orientation/consciousness: oriented to person, oriented to place and oriented to time HENMT Ears: TM's normal bilaterally General nose exam: Normal nasal mucous membranes and turbinates present Eyes Conjunctivae: conjunctivae normal Sclerae: sclerae normal Pupils: Equal, round and reactive pupils present Neck Neck: Yes no lymphadenopathy and Yes no JVD Thyroid: Thyroid normal Carotids: no bruits Resp Effort & Inspection: normal respiratory effort and not tachypneic Auscultation: no crackles, no rales, no rhonchi and no wheezes Cardio Rate: regular rate Rhythm: regular rhythm Heart sounds: no murmurs and normal S1 and S2 GI Palpation (GI): Soft to palpation, nontender, no hepatomegaly and no splenomegaly Auscultation: normal bowel sounds Back/Spine/Pelvis Other: ABLE TO PERFORM STRAIGHT LEG RAISE ON RIGHT SIDE. Skin General skin exam: no rashes or lesions noted and dry skin Neuro General: oriented to person, oriented to place and oriented to time Cranial nerves: Yes Equal, round and reactive pupils present Speech: No Abnormal speech present Gait exam (Neuro): Normal gait present Motor exam (neuro): no tremor noted Extrem Right upper extremity: full ROM Left upper extremity: full ROM Right lower extremity: full ROM; no edema Left lower extremity: full ROM; no edema Psych Mental Status: mental status grossly normal Speech and movement: Normal speech and movement present Affect: normal affect Attitude: cooperative Thought process: Normal thought process present Immunizations Tenivac (PF) 5 Lf unit-2 Lf unit/0.5 mL intramuscular syringe Performing Provider: Gianni Phelan PA-C [facility] Administered by: DENTON Irvin on 11/14/24 09:14 Dose Route Admin Location Dispensed Lot Number Expiration Date NDC [employer] 0.5 mL IM Left Deltoid 0.5 mL [id number] 06/26/26 [id number] [employer] Total Dispensed Waste 0.5 mL 0 % VIS Given Date VIS Provided VIS Publication Date 11/14/24 Single Vaccine 20 Eligibility Eligibility Date Funding Source Not [facility] Eligible 11/14/24 Private Coding Level of Care Code Est Pt Level 4 (68470) Diagnoses Acute right-sided low back pain with right-sided sciatica M54.41 Chronicity: acute Back pain laterality: right Sciatica presence: with sciatica Sciatica laterality: sciatica of right side Diabetes mellitus with coincident hypertension E11.9; I10 Hypertension, unspecified type I10 Hypertension type: unspecified Hyperlipidemia, unspecified hyperlipidemia type E78.5 Hyperlipidemia type: unspecified Benign prostatic hyperplasia without lower urinary tract symptoms N40.0 Lower urinary tract symptom presence: symptoms absent Additional Codes PHQ-9 - 76648 - PHQ-9 Billing: Yes ([id number]) EMY-7 Assessment Billing - EMY-7 Assessment Tool: EMY-7 Assessment 20963 ([id number]) Assessment & Plan Assessment & Plan (1) Lumbago: Code(s): M54.50 - Low back pain, unspecified Category: Medical Qualifiers: Chronicity: acute Back pain laterality: right Sciatica presence: with sciatica Sciatica laterality: sciatica of right side Qualified Code(s): M54.41 - Lumbago with sciatica, right side Plan: The patient presents with symptoms suggestive of lumbar radiculopathy, including leg tightness and tingling in the toes. A referral to physical therapy has been made to address these symptoms, and an x-ray of the lumbar spine is planned to assess for any structural issues. (2) Diabetes mellitus with coincident hypertension: Code(s): E11.9 - Type 2 diabetes mellitus without complications; I10 - Essential (primary) hypertension Category: Medical Plan: Patient's A1c today at 6.8. Continues on metformin 500 b.i.d.. Goal A1c is to remain below 7.0. (3) Hypertension: Code(s): I10 - Essential (primary) hypertension Category: Medical Qualifiers: Hypertension type: unspecified Qualified Code(s): I10 - Essential (primary) hypertension Plan: Patient's blood pressure acceptable today in office. Will continue his current dose of amlodipine with goal blood pressure to remain below 140/90 (4) Hyperlipidemia: Code(s): E78.5 - Hyperlipidemia, unspecified Category: Medical Qualifiers: Hyperlipidemia type: unspecified Qualified Code(s): E78.5 - Hyperlipidemia, unspecified Plan: Patient's recent fasting lipid panel showing good control of his total cholesterol and LDL. He continues on atorvastatin 20 mg. Goal LDL to remain below 100 (5) Benign prostate hyperplasia: Code(s): N40.0 - Benign prostatic hyperplasia without lower urinary tract symptoms Category: Medical Qualifiers: Lower urinary tract symptom presence: symptoms absent Qualified Code(s): N40.0 - Benign prostatic hyperplasia without lower urinary tract symptoms Plan: Continues to follow urology, continues on finasteride 5 mg with good effect. Orders: Orders XR lumbar spine 4V min Today M54.41 - Lumbago with sciatica, right side PT Evaluation and Treatment Today M51.9 - Unspecified thoracic, thoracolumbar and lumbosacral intervertebral disc disorder, M54.41 - Lumbago with sciatica, right side Comprehensive [place]. Panel Fast Today I10 - Essential (primary) hypertension Lipid Panel Today E78.5 - Hyperlipidemia, unspecified Complete Blood Count no Diff Today I10 - Essential (primary) hypertension Td Immunization Today Z23 - Encounter for immunization Medications: New blood pressure monitor As directed 1 ea 0RF I10 - Essential (primary) hypertension
[2024-11-14 08:47] VITALS: BP 144/68; PULSE 77; RESP 16; TEMP 36.1; O2SAT 94; BMI 28.1
== END 2024-11-14 09:16 | disposition home or self-care (01) ==
LOC: HO.HMCH 08:41
PROVIDERS: PCP Physician Assistant; Visit Provider Physician Assistant
DX: M54.41 Lumbago with sciatica, right side (principal); E11.9 Type 2 diabetes mellitus without complications; I10 Essential (primary) hypertension; E78.5 Hyperlipidemia, unspecified; N40.0 Benign prostatic hyperplasia without lower urinary tract symptoms; Z23 Encounter for immunization

== ENCOUNTER → 2024-11-14 08:41 | Outpatient (BNVA) | payer MEDICARE, SELFPAY | PROVIDERS: PCP Physician Assistant; Visit Provider Physician Assistant | DX: Z23 Encounter for immunization (principal); M54.41 Lumbago with sciatica, right side; E11.9 Type 2 diabetes mellitus without complications; E78.5 Hyperlipidemia, unspecified; I10 Essential (primary) hypertension; N40.0 Benign prostatic hyperplasia without lower urinary tract symptoms | CPT/HCPCS: 90471; 90714; 96127; 99212 ==

== ENCOUNTER 2024-11-21 08:49 | Outpatient (REF) | payer MEDICARE, SELFPAY ==
--- NOTE | ~2024-11-21 | XR_ITS ---
EXAMINATION: XR LUMBAR SPINE 4 OR MORE VIEWS HISTORY: M54.41 - Lumbago with sciatica, right side COMPARISON: There are no prior studies for comparison. FINDINGS: AP, lateral, bilateral oblique, and coned down views of the lumbar spine are submitted. Osseous mineralization is normal. Five nonrib-bearing lumbar vertebral bodies are identified, maintaining normal height and alignment without evidence of fracture or spondylolisthesis. There is diffuse moderate degenerative disc disease with disc space narrowing and osteophyte formation. There is osteoarthritis of the facet joints. There is no spondylolysis. The visualized paraspinal soft tissues are unremarkable. The patient is status post right total hip arthroplasty. There is moderate to severe osteoarthritis of the left hip. XR/XR lumbar spine 4V min IMPRESSION: Degenerative changes of the lumbar spine as described. Electronically signed by: Jeff Cox MD 11/21/2024 09:47 AM EDT
== END 2024-11-21 08:50 | disposition home or self-care (01) ==
LOC: HO.HMGCX 08:49
PROVIDERS: PCP Physician Assistant; Visit Provider Physician Assistant
DX: M54.41 Lumbago with sciatica, right side (principal)
CPT/HCPCS: 72110

== ENCOUNTER → 2024-11-21 08:55 | Outpatient (BNV) | payer MEDICARE, SELFPAY | PROVIDERS: PCP Physician Assistant; Visit Provider Radiology Diagnostic Radiology | DX: M51.361 Other intervertebral disc degeneration, lumbar region with lower extremity pain only (principal) | CPT/HCPCS: 72110 ==

== ENCOUNTER 2025-03-12 06:06 | Outpatient (REF) | payer MEDICARE, SELFPAY ==
[2025-03-12 10:41] LABS: Hematocrit 47.3 % (42.0-52.0); Hemoglobin 15.4 g/dl (14.0-18.0); Mean Corpuscular HGB Conc 32.6 g/dl (31.0-36.0); Mean Corpuscular Hemoglobin 30.1 pg (27.0-33.0); Mean Corpuscular Volume 92.6 fL (80.0-98.0); NRBC Abs Auto 0.000 X10*3/uL (0.0-0.012); NRBC Pct Auto 0.0 /100WBC (0.0-0.2); Platelet Count 262 X10*3/uL (160-400); Red Blood Count 5.11 X10*6/uL (4.60-5.80); White Blood Count 7.6 X10*3/uL (4.8-10.8)
[2025-03-12 12:04] LABS: Alanine Aminotransferase 26 U/L (0-40); Albumin Level 4.5 g/dL (3.5-5.0); Alkaline Phosphatase 45 U/L (39-117); Anion Gap 14 (12-20); Aspartate Amino Transferase 31 U/L (5-37); Blood Urea Nitrogen 17 mg/dL (9-16); Calcium 9.2 mg/dL (8.4-10.2); Carbon Dioxide 27 mmol/L (22-29); Chloride 106 mmol/L (96-108); Cholesterol 149 mg/dL (<200); Estimated Glomerular Filt Rate > 60; HDL Cholesterol 46 mg/dL (>40); Potassium 4.0 mmol/L (3.3-5.1); Sodium 143 mmol/L (135-145); Total Protein 6.9 g/dL (6.5-8.0); Triglycerides 88 mg/dL (<150)
== END 2025-03-12 06:07 | disposition home or self-care (01) ==
LOC: HO.HMGCLDS 06:06
PROVIDERS: PCP Physician Assistant; Visit Provider Physician Assistant
DX: I10 Essential (primary) hypertension (principal); E78.5 Hyperlipidemia, unspecified
CPT/HCPCS: 36415; 80053; 80061; 85027

== ENCOUNTER 2025-03-18 09:07 | Outpatient (AMB) | payer MEDICARE, SELFPAY ==
--- NOTE | 2025-03-18 09:20 | MHC.PC.OV ---
Vital Signs 03/18/25 09:24 Height 5 ft 5 in Weight 175 lb 2 oz BMI 29.1 BP 120/72 Blood Pressure Location Lt brachial Position Sitting Pulse 66 Pulse Source Pulse Oximeter Pulse Oximetry (%) 96 Oxygen Delivery Method Room Air Intake Visit Reasons: f/u HTN Allergies CHARLENE Inhibitors (CHARLENE INHIBITORS) Allergy (Unknown, Verified 03/18/25 09:33) COUGH SEASONAL ALLERGIES Allergy (Unknown, Uncoded 03/18/25 09:33) STUFFINESS, SNEEZING Medication List - Last Reconciled 03/18/25 by Gianni Phelan PA-C amlodipine 5 mg PO DAILY atorvastatin 20 mg PO DAILY blood pressure monitor As directed finasteride 5 mg PO DAILY 30 days lidocaine 5% (Lidoderm) 1 patch topical DAILY loratadine (Allergy Relief (loratadine)) 10 mg PO DAILY PRN metformin 500 mg PO BID Tobacco use date assessed: 03/18/25 Fall risk assessment: 2 + Falls in past year Last assessed Fall Risk: 03/18/25 Dental Screening Dental Screen Date: 03/18/25 Did you have a dental visit in the last 12 months?: Yes Did you have a dental problem in the last 6 months where you did not have access to dental care?: No Was dental information given to patient?: Patient has dentist HPI f/u HTN HPI Details Patient is an 84-year-old male here today for a follow-up visit. Patient has a past medical history significant for hypertension, BPH, hyperlipidemia, type 2 diabetes and GERD. .. Type 2 diabetes: Today's A1c improved at 6.5 from 6.9., patient continues with the use of metformin 500 b.i.d.. . Hypertension: Patient's blood pressure has been stable, 130 systolic, 70s diastolic. Will continue on amlodipine at current dose. .. BPH: Patient continues to see [facility], continues on finasteride. Laboratory Tests 11/07/24 11/07/24 03/12/25 07:05 07:10 06:15 RBC 5.11 Creatinine 0.98 Fasting Glucose 113 H 114 H Hemoglobin A1c % 6.9 H Cholesterol 149 LDL Cholesterol, C alc 86 Urine Microalbumin < 5.0 PFSH Medical History Hyperlipidemia Hypertension Surgical History History of colonoscopy History of total replacement of right hip H/O pilonidal cyst History of right hip replacement Family History Father Heart disease Mother Head injury Brother No problems noted. Family/Other Diabetes Social History Housing: House Alcohol intake: never Patient Tobacco Use Status: Never used Tobacco e-Cigarette/Vaping Use: Never Used Second Hand Smoke Exposure: No service: No Current occupational status: retired Current occupational exposures/hazards: No Cognitive needs: No Hearing needs: Yes Vision needs: Yes (glasses) Questionnaire PHQ-9 Over the last 2 weeks, how often have you been bothered by any of the following problems? 1. Little interest or pleasure in doing things: not at all 2. Feeling down, depressed, or hopeless: not at all 3. Trouble falling or staying asleep, or sleeping too much: not at all 4. Feeling tired or having little energy: not at all 5. Poor appetite or overeating: not at all 6. Feeling bad about yourself - or that you are a failure or have let yourself or your family down: not at all 7. Trouble concentrating on things, such as reading the newspaper or watching television: not at all 8. Moving or speaking so slowly that other people could have noticed. Or the opposite - being so fidgety or restless that you have been moving around a lot more than usual: not at all 9. Thoughts that you would be better off or of hurting yourself in some way: not at all Total score: 0 Depression Screening Interpretation: Negative Depression Screening Done: Yes 33775 - PHQ-9 Billing: Patient declined-do not bill Source: Developed by Drs. Jeff Maria, Nataliya Bal, Avtar Lozada and colleagues, with an educational capo from [employer]. Thrive Questionnaire Date Thrive assessed: 03/18/25 I am a: Patient What is your living situation today?: I have a steady place to live Within the past 12 months, did the food you bought not last and you didn't have the money to get more?: Never true Within the past 12 months, did you worry whether your food would run out before you got money to buy more?: Never true Do you have trouble paying for medicines?: No Do you have trouble getting transportation to medical appointments?: No Do you have trouble paying your heating and electricity bill?: No Do you have trouble taking care of your child, family member or friend?: I choose not to answer this question Do you have trouble with day-to-day activities such as bathing, preparing meals, shopping, managing finances, etc.?: No Are you currently unemployed and looking for a job?: No Are you interested in more education?: No Please select the resources that you would like help with: None Currently or been in a relationship where the following occur: No concerns reported THRIVE Score: 0 AUDIT C Alcohol Use Questionnaire (AUDIT-C) 1. How often do you have a drink containing alcohol?: Never 3. How often do you have six or more drinks on one occasion?: Never Total Score: 0 Score Reviewed/Action Taken: No EMY-7 AMB Questionnaire EMY-7 Date EMY - 7 assessed: 03/18/25 Feeling nervous, anxious, or on edge: 0 = Not at all Not being able to stop or control worryin = Not at all Worrying too much about different things: 0 = Not at all Trouble relaxin = Not at all Being so restless that it is hard to sit still: 0 = Not at all Becoming easily annoyed or irritable: 0 = Not at all Feeling afraid as if something awful might happen: 0 = Not at all Total EMY-7 score (0-4 normal; 5-9 mild; 10-14 moderate; 15-21 severe): 0 Source: Developed by Drs. Jeff Maria, Nataliya Bal, Avtar Lozada and colleagues, with an educational capo from [employer]. EMY-7 Assessment Billing EMY-7 Assessment Tool: EMY-7 Assessment 30076 Review of Systems Const Denies headache(s) Eyes Denies loss of vision ENT Denies vertigo, Denies dizziness, Denies headache(s) and Denies sore throat Card Denies chest pain, Denies leg edema and Denies lightheadedness Resp Denies cough, Denies hemoptysis and Denies wheezing GI Denies abdominal pain, Denies melena, Denies constipation, Denies diarrhea and Denies vomiting Denies dysuria, Denies urinary frequency and Denies urinary urgency Musc Denies arthralgias, Denies joint swelling, Denies numbness and Denies tingling Neuro Denies Abnormal speech present, Denies behavioral changes, Denies vertigo, Denies dizziness, Denies headache(s), Denies loss of vision, Denies memory loss, Denies numbness and Denies tingling Psych Denies anxiety, Denies behavioral changes, Denies depression, Denies memory loss and Denies panic attacks Charanjit/Lymph Denies easy bleeding and Denies easy bruising Aller/Immun Denies wheezing Physical exam (Primary Care) Vital Signs: Last Vital Signs Pulse 66 03/18/25 09:24 BP 120/72 03/18/25 09:24 Pulse Ox 96 03/18/25 09:24 Oxygen Delivery Method Room Air 03/18/25 09:24 BMI result Body Mass Index 29.1 Tobacco/Smoking Status: Tobacco use Status Tobacco use date assessed 03/18/25 03/18/25 09:26 Patient Tobacco Use Status Never used Tobacco 03/18/25 09:20 e-Cigarette/Vaping Use Never Used 03/18/25 09:20 PHQ-9: PHQ-9 Score PHQ-9: Total score 0 03/18/25 09:26 Depression Screening Interpretation: Negative Thrive Assessment: Date of Thrive Assessment Date Thrive assessed 03/18/25 03/18/25 09:26 Currently or been in a relationship where the following occur: No concerns reported Const General: healthy appearing, no acute distress, alert and awake Nutritional Appearance: well nourished Orientation/consciousness: oriented to person, oriented to place and oriented to time HENAL Ears: TM's normal bilaterally General nose exam: Normal nasal mucous membranes and turbinates present Eyes Conjunctivae: conjunctivae normal Sclerae: sclerae normal Pupils: Equal, round and reactive pupils present Neck Neck: Yes no lymphadenopathy and Yes no JVD Thyroid: Thyroid normal Carotids: no bruits Resp Effort & Inspection: normal respiratory effort and not tachypneic Auscultation: no crackles, no rales, no rhonchi and no wheezes Cardio Rate: regular rate Rhythm: regular rhythm Heart sounds: no murmurs and normal S1 and S2 GI Palpation (GI): Soft to palpation, nontender, no hepatomegaly and no splenomegaly Auscultation: normal bowel sounds Skin General skin exam: no rashes or lesions noted and dry skin Neuro General: oriented to person, oriented to place and oriented to time Cranial nerves: Yes Equal, round and reactive pupils present Speech: No Abnormal speech present Gait exam (Neuro): Normal gait present Motor exam (neuro): no tremor noted Extrem Right upper extremity: full ROM Left upper extremity: full ROM Right lower extremity: full ROM; no edema Left lower extremity: full ROM; no edema Psych Mental Status: mental status grossly normal Speech and movement: Normal speech and movement present Affect: normal affect Attitude: cooperative Thought process: Normal thought process present Coding Level of Care Code Est Pt Level 4 (58012) Diagnoses Diabetes mellitus with coincident hypertension E11.9; I10 Hypertension, unspecified type I10 Hypertension type: unspecified Hyperlipidemia, unspecified hyperlipidemia type E78.5 Hyperlipidemia type: unspecified Benign prostatic hyperplasia without lower urinary tract symptoms N40.0 Lower urinary tract symptom presence: symptoms absent Additional Codes EMY-7 Assessment Billing - EMY-7 Assessment Tool: EMY-7 Assessment 46079 ([id number]) Assessment & Plan Assessment & Plan (1) Diabetes mellitus with coincident hypertension: Code(s): E11.9 - Type 2 diabetes mellitus without complications; I10 - Essential (primary) hypertension Category: Medical Plan: Patient's type 2 diabetes well controlled. Patient's A1c today at 6.5.. Continues on metformin 500 b.i.d.. Goal A1c is to remain below 7.0. (2) Hypertension: Code(s): I10 - Essential (primary) hypertension Category: Medical Qualifiers: Hypertension type: unspecified Qualified Code(s): I10 - Essential (primary) hypertension Plan: Patient's blood pressure acceptable today in office. Will continue his current dose of amlodipine with goal blood pressure to remain below 140/90 (3) Hyperlipidemia: Code(s): E78.5 - Hyperlipidemia, unspecified Category: Medical Qualifiers: Hyperlipidemia type: unspecified Qualified Code(s): E78.5 - Hyperlipidemia, unspecified Plan: Patient's recent fasting lipid panel showing good control of his total cholesterol and LDL. He continues on atorvastatin 20 mg. Goal LDL to remain below 100 (4) Benign prostate hyperplasia: Code(s): N40.0 - Benign prostatic hyperplasia without lower urinary tract symptoms Category: Medical Qualifiers: Lower urinary tract symptom presence: symptoms absent Qualified Code(s): N40.0 - Benign prostatic hyperplasia without lower urinary tract symptoms Plan: Continues to follow urology, continues on finasteride 5 mg with good effect. Orders: Orders AMB Hemoglobin A1c Today Z13.9 - Encounter for screening, unspecified Microalbumin, Random (w Creat) Today I10 - Essential (primary) hypertension Comprehensive [place]. Panel Fast Today I10 - Essential (primary) hypertension Lipid Panel Today E78.5 - Hyperlipidemia, unspecified Complete Blood Count no Diff Today I10 - Essential (primary) hypertension Hemoglobin A1c Today E11.9 - Type 2 diabetes mellitus without complications, I10 - Essential (primary) hypertension
[2025-03-18 09:24] VITALS: BP 120/72; PULSE 66; O2SAT 96; BMI 29.1
== END 2025-03-18 09:50 | disposition home or self-care (01) ==
LOC: HO.HMCH 09:08
PROVIDERS: PCP Physician Assistant; Visit Provider Physician Assistant
DX: E11.9 Type 2 diabetes mellitus without complications (principal); I10 Essential (primary) hypertension; E78.5 Hyperlipidemia, unspecified; N40.0 Benign prostatic hyperplasia without lower urinary tract symptoms; Z13.9 Encounter for screening, unspecified

== ENCOUNTER → 2025-03-18 09:07 | Outpatient (BNVA) | payer MEDICARE, SELFPAY | PROVIDERS: PCP Physician Assistant; Visit Provider Physician Assistant | DX: I10 Essential (primary) hypertension (principal); Z13.31 Encounter for screening for depression; Z13.39 Encounter for screening examination for other mental health and behavioral disorders; E11.9 Type 2 diabetes mellitus without complications; E78.5 Hyperlipidemia, unspecified; N40.0 Benign prostatic hyperplasia without lower urinary tract symptoms | CPT/HCPCS: 83036; 96127; 99212 ==